=== PATIENT | female | born 1935 | race Caucasian/White ===

== ENCOUNTER 2024-02-20 12:36 | Emergency (ER) | payer MEDICARE, OTHER, MEDICAID, SELFPAY ==
[2024-02-20 12:41] VITALS: BP 122/55
[2024-02-20 13:10] VITALS: BP 137/65
[2024-02-20 13:16] LABS: % Basophils 0.7 % (0-2); % Eosinophils 3.3 % (0-6); % Immature Granulocytes 0.2 % (0-0.5); % Lymphocytes 24.4 % (20.5-51.1); % Neutrophils 61.4 % (42.2-75.2); Absolute Basophils 0.1 10^3/uL (0-0.2); Absolute Eosinophils 0.3 10^3/uL (0-0.7); Absolute Monocytes 0.8 10^3/uL (0.1-0.6); Absolute Neutrophils 5.1 10^3/uL (1.4-6.5); Hematocrit 37.7 % (37.0-47.0); Hemoglobin 13.1 g/dL (12.0-16.0); Mean Corp Hgb Conc. 34.7 g/dL (33.0-37.0); Mean Corpuscular Hgb 33.2 pg (27.0-31.0); Mean Corpuscular Volume 95.7 fL (81.0-99.0); Mean Platelet Volume 10.3 fL (7.4-10.4); Nucleated Red Blood Cells % 0 %; Platelet Count 226 10^3/uL (130-400); Red Blood Cell Count 3.94 10^6/uL (4.20-5.40); Red Cell Dist. Width 12.5 % (11.5-14.5); White Blood Cell Count 8.3 10^3/uL (4.8-10.8)
--- NOTE | 2024-02-20 13:24 | ED.GENMED ---
History of Present Illness
General
Chief Complaint: Breathing Problem
Source: patient
Exam Limitations: none
Time Seen by Provider: 02/20/24 13:07
History of Present Illness
History of Present Illness:
88-year-old female with history of CHF presents with a weeks worth of progressive worsening abdominal girth shortness of breath and dyspnea on exertion. She denies leg swelling. She has gained about 5 pounds in a week. She took an additional
Lasix yesterday which seemed to help some but she is still symptomatic. No fever. She denies orthopnea. Spoke with her family doctor today and was sent here for further evaluation
Past History
Past History
ED Past Medical History: Arrthythmia (Afib - pacemaker), Asthma, CAD, COPD, GERD, HTN, Hypercholesterolemia and Renal failure (stage III)
ED Past Surgical History: Cholecystectomy and Gynecological (hysterectomy)
Social History
Tobacco: Non-smoker
Alcohol: None
Drug: None
Phy Exam
Physical Exam
Physical Exam:
General: Well-appearing female slight increased respiratory effort
Heart: Regular rate and rhythm
Lungs: Clear no wheeze, no obvious rales
Abdomen is soft nondistended
Extremities: No cyanosis or edema
Skin is warm no rash
Scores
Heart Failure Risk
Heart Failure Risk Score: Not Applicable
Course
Orders/Labs/Results
Orders:
Orders
02/20/24 12:44
Electrocardiogram (*1) Urgent
Reason for Study: Other
Other Reason for Exam: Respiratory Distress
EKG- Treatment ONCE
CR Chest - 2 Views Urgent
Comment:
Reason For Exam: respiratory distress
02/20/24 13:02
Complete Blood Count/With Diff Urgent
Comprehensive Metabolic Panel Urgent
NT-proBNP Urgent
Troponin I Urgent
Abnormal Lab Results
02/20/24
13:02
RBC 3.94 L 10^6/uL
(4.20-5.40)
MCH 33.2 H pg
(27.0-31.0)
Absolute Monos (auto) 0.8 H 10^3/uL
(0.1-0.6)
Monocytes % 10.0 H %
(1.7-9.3)
Potassium 5.3 H mmol/L
(3.5-5.1)
BUN 19 H mg/dl
(7-17)
Creatinine 1.4 H mg/dL
(0.6-1.0)
Glucose 125 H mg/dl
(70-99)
02/20/24 13:02
02/20/24 13:02
Vital Signs
Initial and Last Documented VS:
Initial Vital Signs
Temp Pulse Resp BP Pulse Ox
99.2 F 69 18 122/55 95
02/20/24 12:41 02/20/24 12:41 02/20/24 12:41 02/20/24 12:41 02/20/24 12:41
Last Documented Vital Signs
Temp Pulse Resp BP Pulse Ox
99.2 F 72 19 137/65 94
02/20/24 12:41 02/20/24 14:00 02/20/24 13:30 02/20/24 13:10 02/20/24 14:00
MDM/Problems Addressed
Differential Diagnosis Includes:
Patient here with shortness of breath. Differential could include CHF exacerbation versus pneumonia versus anemia versus electrode abnormality. She is anticoagulated without chest pain. Unlikely be PE.
Check labs including BNP chest x-ray pending.
*Critical Care Note
Total Time (30-74mins, 75-104mins- exclusive of procedures): Not Applicable
Update Note
Update Note:
Workup here looks well. Chest x-ray clear not anemic. Patient is not hypoxic here. She has ambulated to the bathroom without being hypoxic. Suspect mild CHF exacerbation but not indicated for admission to hospital. Will have her continue her
Lasix for the next 3 days and follow-up. Return precautions were given
ED Attending Note
-
Portions of this chart may have been created with voice recognition software.� Occasional wrong word or��sound alike� substitutions may have occurred due to the inherent limitations of voice recognition software.
Discharge Plan
Departure
Patient Disposition: Home (Routine Discharge)
Date of Disposition: 02/20/24
Time of Disposition: 15:23
Patient with high blood pressure during this ER visit?: No
Discharge Problem:
Dyspnea
Instructions: Shortness of Breath (Dyspnea) (DC)
Prescriptions:
No Action
paroxetine HCl 20 MG tablet
20 mg PO QPM
esomeprazole magnesium [Nexium 24HR] 20 mg Capsule,Delayed Release(Dr/Ec)
20 mg PO DAILY
Patient Comments:
02/20/24: Patient taking this med until she can get Protonix 40mg filled.
rosuvastatin 20 mg Tablet
20 mg PO QPM
cholecalciferol (vitamin D3) 2,000 UNIT tablet
2,000 unit PO DAILY
fluticasone propion-salmeterol 250-50 mcg/dose Blister With Device
1 inh INHALATION R BID
sennosides [senna] 8.6 mg Tablet
8.6 mg PO HS
metoprolol succinate 100 mg Tablet Extended Release 24 Hr
100 mg PO BID
diltiazem HCl 240 mg Capsule,Extended Release 24 Hr
240 mg PO DAILY
hydrocortisone 2.5 % Cream With Perineal Applicator
1 applic [place] HS
ferrous sulfate 325 mg (65 mg iron) Tablet
325 mg PO DAILY
nitroglycerin 0.4 mg Tablet, Sublingual
0.4 mg SUBLINGUAL [id number] PRN (Reason: angina)
furosemide 20 mg Tablet
20 mg PO Q48H
fluticasone propionate [Flonase] 50 mcg/actuation [place],Suspension
1 spray INTRANASAL BIDPRN PRN (Reason: congestion)
Eliquis 2.5 mg Tablet
2.5 mg PO BID
Referrals:
Harvey Napoles, DO [Family Provider] -
Activity Restrictions/Additional Instructions:
Take your Lasix daily for the next 3 days. Please return here for any worsening shortness of breath or symptoms otherwise follow-up with your doctor.
Interventions
Interventions:
*Risk Screen - Suicide Last Done: 02/20/24 15:20
*Neglect/Abuse Screening Last Done: 02/20/24 15:20
*ED COVID-19 Vaccine History Last Done: 02/20/24 15:22
Discharge Date and Time
Print Language: NICARAGUAN
[2024-02-20 13:30] LABS: ALT (SGPT) 17 U/L (0-35); AST (SGOT) 23 U/L (14-36); Albumin 4.2 g/dl (3.5-5.0); Alkaline Phosphatase 78 U/L (38-126); Blood Urea Nitrogen 19 mg/dl (7-17); Calcium 9.9 mg/dl (8.4-10.2); Carbon Dioxide 29 mmol/L (22-30); Chloride 102 mmol/L (98-107); Glucose 125 mg/dl (70-99); Potassium 5.3 mmol/L (3.5-5.1); Sodium 142 mmol/L (135-145); Total Bilirubin 0.5 mg/dl (0.2-1.3); Total Protein 7.2 g/dl (6.3-8.2); eGFR 36.19
[2024-02-20 13:41] LABS: NT-proBNP 1920 pg/ml; Troponin I 0.016 ng/ml
[2024-02-20 14:00] VITALS: BP 126/51
[2024-02-20 15:12] VITALS: BMI 24.2
[2024-02-20 15:16] VITALS: BP 161/66
== END 2024-02-20 16:16 | disposition home or self-care (01) ==
LOC: EMR 12:36
PROVIDERS: Emergency Medicine; EMERGENCY PHYSICIAN Emergency Medicine; FAMILY PHYSICIAN Family Medicine
DX: R06.00 Dyspnea, unspecified (principal); I48.91 Unspecified atrial fibrillation; I25.10 Atherosclerotic heart disease of native coronary artery without angina pectoris; E78.00 Pure hypercholesterolemia, unspecified; K21.9 Gastro-esophageal reflux disease without esophagitis; I13.0 Hypertensive heart and chronic kidney disease with heart failure and stage 1 through stage 4 chronic kidney disease, or unspecified chronic kidney disease; N18.30 Chronic kidney disease, stage 3 unspecified; I50.9 Heart failure, unspecified; Z90.49 Acquired absence of other specified parts of digestive tract; Z95.0 Presence of cardiac pacemaker; Z88.2 Allergy status to sulfonamides; Z79.01 Long term (current) use of anticoagulants
CPT/HCPCS: 99283; 71046; 80053; 83880; 84484; 85025; 93005

== ENCOUNTER 2024-07-26 14:43 | Inpatient (IN) | payer OTHER, SELFPAY ==
[2024-07-26] VITALS (8 sets, daily range): BP systolic 108–128; BP diastolic 49–57; BMI 22.5
--- NOTE | 2024-07-26 10:10 | ED.GENMED ---
History of Present Illness
General
Chief Complaint: Breathing Problem
Source: patient
Exam Limitations: none
Time Seen by Provider: 07/26/24 10:00
History of Present Illness
History of Present Illness:
89yoF with history of CHF, atrial fibrillation on Eliquis, COPD, hypertension, hyperlipidemia presenting via EMS for evaluation of vomiting. She became sick yesterday evening. She reports vomiting throughout the night. She had an episode
left-sided chest pain last night and states her chest felt very sore. She has no chest pain currently. She also was very sweaty last night. She started to feel short of breath this morning and EMS was called. Patient was given droperidol by EMS
for nausea.
Past History
Past History
ED Past Medical History: Arrthythmia (Afib - pacemaker), Asthma, CAD, COPD, GERD, HTN, Hypercholesterolemia and Renal failure (stage III)
ED Past Surgical History: Cholecystectomy and Gynecological (hysterectomy)
Social History
Tobacco: Non-smoker
Alcohol: None
Drug: None
Phy Exam
General Physical Exam
General Presentation: well appearing
General Skin: warm and dry
General Habitus: elderly
General Mental: alert
ENT Exam
ENT Exam: normocephalic
Cardiovascular Exam
Cardiovascular Exam: no murmur and systolic murmur
Pulmonary Exam
Pulmonary Exam: generalized wheezing and other (Frequent cough. Diffuse wheezing. Able to speak in full sentences. )
Neurological Exam
Neurological Exam: alert
Skin Exam
Skin Exam: normal color and warm/dry
Psychiatric Exam
Psychiatric Exam: normal mood/affect
Scores
Heart Failure Risk
Heart Failure Risk Score: Not Applicable
Course
Orders/Labs/Results
Orders:
Orders
07/26/24 10:09
Electrocardiogram (*1) Urgent
Reason for Study: Shortness of Breath
EKG- Treatment ONCE
Ipratropium/Albuterol Sulfate [Duoneb] 3 ml INH R NOW STA
CR Chest - 2 Views Urgent
Comment:
Reason For Exam: SOB, cough
07/26/24 10:11
COVID-19 Antigen Urgent
Source: Nasal Swab
Complete Blood Count/With Diff Urgent
Comprehensive Metabolic Panel Urgent
Lipase Urgent
Magnesium Urgent
Troponin I Urgent
Influenza A+B Rapid Molecular Urgent
SHANNAN Source: Nasal Swab
Specimen Description:
Acetaminophen [Tylenol] 650 mg PO NOW STA
07/26/24 12:43
CefTRIAXone [Rocephin] 1,000 mg IV NOW STA
Doxycycline [Vibramycin] 100 mg PO NOW STA
07/26/24 13:48
Admit/Transfer Patient As Directed
Co-Sign Provider:
Level of Care: Inpatient admission
Assign to:: Medical/Surgical
Physician / Group: amber
Diagnosis: pnuemonia
Reason for Hospitalization: pneumonia
Expected length of stay greater than two midnights?: Yes
ELOS- Estimated Length of Stay in days: 2
I certify the patient meets the requirements for IP care: Yes
PRN Pain Medication Management As Directed
May give lesser potent ordered pain med per pt: Yes
preference::
Protocol:: Medication orders for pain may be administered in a
manner that supports deferring to patient preference
when the pt is:
- Requesting an ordered lesser potent pain medication.
Least to most potent pain medications are defined
as: acetaminophen < NSAID < tramadol < opioids
(morphine, oxycodone, hydromorphone).
- Requesting a lesser dose of the same medication IF
ORDERED.
- Requesting a less intrusive route of administration
if both routes are prescribed by the provider (PO <
IV).
07/26/24 13:49
Code Status As Directed
Resuscitation Status: Do not resuscitate
Reached after discussion with pt or family/Healthcare POA: Yes
DNR Bracelet Application ONCE
07/26/24 Dinner
Regular
At Your Request: Limited Participation
Does patient need a safe tray?: No
07/26/24 15:11
Respiratory Syncytial Virus Urgent
SHANNAN Source: Nasal Swab
Specimen Description:
Date Specimen was Collected: 07/26/24
Time Specimen was Collected: 10:13
07/26/24 15:50
0.9% Sodium Chloride 1000 ml [Nss] 1,000 ml IV 70 mls/hr
07/26/24 15:50
VTE Contraindication Routine
VTE Mechanical Device Contraindication: Medical Contraindication
Pharmocologic Contraindication: Medical Contraindication
Activity As Directed
Activity Level: As Tolerated
Vital Signs As Directed
Frequency: Per unit guidelines
07/26/24 16:00
Acetaminophen [Tylenol] 650 mg PO Q4HPRN PRN
07/26/24 20:00
Doxycycline [Vibramycin] 100 mg PO Q12
07/27/24 06:00
Complete Blood Count/With Diff IN AM
Comprehensive Metabolic Panel IN AM
07/27/24 14:00
CefTRIAXone [Rocephin] 1,000 mg IV Q24H
Abnormal Lab Results
07/26/24
10:11
WBC 11.6 H 10^3/uL
(4.8-10.8)
RBC 3.79 L 10^6/uL
(4.20-5.40)
Hct 36.5 L %
(37.0-47.0)
MCH 32.5 H pg
(27.0-31.0)
MPV 10.6 H fL
(7.4-10.4)
Absolute Neuts (auto) 9.6 H 10^3/uL
(1.4-6.5)
Absolute Lymphs (auto) 0.8 L 10^3/uL
(1.2-3.4)
Absolute Monos (auto) 0.9 H 10^3/uL
(0.1-0.6)
Neutrophils % 82.3 H %
(42.2-75.2)
Lymphocytes % 7.1 L %
(20.5-51.1)
BUN 24 H mg/dl
(7-17)
Creatinine 1.3 H mg/dL
(0.6-1.0)
Glucose 112 H mg/dl
(70-99)
Total Bilirubin 1.4 H mg/dl
(0.2-1.3)
07/26/24 10:11
07/26/24 10:11
Vital Signs
Initial and Last Documented VS:
Initial Vital Signs
Pulse Ox
92
07/26/24 09:51
Last Documented Vital Signs
Temp Pulse Resp BP Pulse Ox
97.7 F 71 16 125/54 93
07/26/24 16:00 07/26/24 16:00 07/26/24 16:00 07/26/24 16:00 07/26/24 16:00
MDM/Problems Addressed
Differential Diagnosis Includes:
89yoF here with vomiting, cough, and SOB. She is febrile to 100.7 on arrival. Oxygen saturation 88-89%. Hx of COPD, not oxygen dependent at baseline. Diffuse wheezing on lung exam without conversational dyspnea. Differential diagnosis includes but
is not limited to: viral illness, pneumonia, COPD exacerbation, ACS
Initial ED plan: Check cardiac labs, COVID/flu/RSV swab, EKG, and CXR. DuoNeb and reassess.
*EKG
Interpreted by ED Provider?: Yes
EKG Intrepretation Date: 07/26/24
Heart Rate: 72
Rate: normal
Rhythm: av sequential
Bryan: left axis deviation
QRS Pattern: right bundle branch block (incomplete)
Ischemia: no ischemia
*Critical Care Note
Total Time (30-74mins, 75-104mins- exclusive of procedures): Not Applicable
Update Note
Update Note:
CXR shows subtle RLL infiltrate. WBC 11.6. Viral testing negative. EKG shows paced rhythm without ischemic changes. IV Rocephin and doxycycline ordered. Patient admitted for further management. Patient on 2L NC at time of admission.
ED Attending Note
-
Portions of this chart may have been created with voice recognition software.� Occasional wrong word or��sound alike� substitutions may have occurred due to the inherent limitations of voice recognition software.
Discharge Plan
Departure
Patient Disposition: Admit
Date of Disposition: 07/26/24
Time of Disposition: 12:51
Presentation/result/management discussed w/ accepting MD/DO: Hospitalist
Discharge Problem:
Pneumonia, Acute hypoxic respiratory failure
Interventions
Interventions:
*Risk Screen - Suicide Last Done: 07/26/24 10:09
*General Assessment Last Done: 07/26/24 10:09
*Neglect/Abuse Screening Last Done: 07/26/24 10:09
*ED- Fall Risk Assessment Last Done: 07/26/24 10:34
*ED COVID-19 Vaccine History Last Done: 07/26/24 10:34
*Nursing Disposition Last Done: 07/26/24 16:04
ED- Cardiac Assessment Last Done: 07/26/24 10:33
ED- Pulmonary Assessment Last Done: 07/26/24 10:33
Discharge Date and Time
Discharge Date/Time: 07/26/24 16:04
[2024-07-26] MEDS: DUONEB 3 ML INH (10:19)
[2024-07-26] MEDS: TYLENOL 650 MG PO (10:19)
[2024-07-26 10:22] LABS: % Basophils 0.3 % (0-2); % Eosinophils 1.9 % (0-6); % Immature Granulocytes 0.3 % (0-0.5); % Lymphocytes 7.1 % (20.5-51.1); % Monocytes 8.1 % (1.7-9.3); % Neutrophils 82.3 % (42.2-75.2); Absolute Eosinophils 0.2 10^3/uL (0-0.7); Absolute Lymphocytes 0.8 10^3/uL (1.2-3.4); Absolute Monocytes 0.9 10^3/uL (0.1-0.6); Absolute Neutrophils 9.6 10^3/uL (1.4-6.5); Hematocrit 36.5 % (37.0-47.0); Hemoglobin 12.3 g/dL (12.0-16.0); Mean Corp Hgb Conc. 33.7 g/dL (33.0-37.0); Mean Corpuscular Hgb 32.5 pg (27.0-31.0); Mean Corpuscular Volume 96.3 fL (81.0-99.0); Mean Platelet Volume 10.6 fL (7.4-10.4); Nucleated Red Blood Cells % 0 %; Platelet Count 214 10^3/uL (130-400); Red Blood Cell Count 3.79 10^6/uL (4.20-5.40); Red Cell Dist. Width 12.2 % (11.5-14.5); White Blood Cell Count 11.6 10^3/uL (4.8-10.8)
[2024-07-26 10:38] LABS: ALT (SGPT) 15 U/L (0-35); AST (SGOT) 20 U/L (14-36); Albumin 3.5 g/dl (3.5-5.0); Alkaline Phosphatase 88 U/L (38-126); Blood Urea Nitrogen 24 mg/dl (7-17); Calcium 9.5 mg/dl (8.4-10.2); Carbon Dioxide 27 mmol/L (22-30); Chloride 100 mmol/L (98-107); Glucose 112 mg/dl (70-99); Lipase 84 U/L (23-300); Magnesium 2.2 mg/dl (1.6-2.3); Potassium 4.6 mmol/L (3.5-5.1); Sodium 136 mmol/L (135-145); Total Bilirubin 1.4 mg/dl (0.2-1.3); Total Protein 6.4 g/dl (6.3-8.2); eGFR 39.31
[2024-07-26 10:41] LABS: COVID-19 Antigen Negative (Negative)
[2024-07-26 10:42] LABS: Troponin I < 0.012 ng/ml
[2024-07-26] MEDS: VIBRAMYCIN 100 MG PO ×2 (13:39→20:28)
[2024-07-26] MEDS: ROCEPHIN 1000 MG IV (13:39)
--- NOTE | 2024-07-26 13:52 | HPS.HSE ---
Family Physician
-
Family Physician: Harvey Napoles
Chief Complaint
-
vomiting, cough
History of Present Illness
89-year-old female past medical history of CHF, atrial fibrillation on Eliquis with pacemaker, CAD, COPD, hypertension, hyperlipidemia, GERD, CKD 3, presenting for cough and vomiting. She became sick yesterday evening and had vomiting throughout
the night. She had an episode of left-sided chest pain last night and states that her chest felt very sore. She has no chest pain currently. She was also very sweaty last night. She started to feel short of breath with cough this morning and EMS
was called. She was given droperidol by EMS for nausea.
Denies any diarrhea. She does have some abdominal discomfort.
Denies smoking or alcohol use.
Medical History
Past Medical History
Past Medical History: Reports Other (CHF, atrial fibrillation on Eliquis with pacemaker, CAD, COPD, hypertension, hyperlipidemia, GERD, CKD 3,)
Past Surgical History: Reports Other ( Cholecystectomy and Gynecological (hysterectomy))
Social History
Tobacco: Non-smoker
Alcohol: None
Drug: None
Family History
Family History: Not pertinent
Allergies / Home Medications
Allergies reflects when Allergies were last updated in [facility].
Home Medications with original date entered in [facility]
Allergy/Medication List:
Allergies
Allergy/AdvReac Type Severity Reaction Status Date / Time
Sulfa (Sulfonamide Allergy Unknown Unknown Verified 07/26/24 10:06
Antibiotics)
Home Medications
cholecalciferol (vitamin D3) 50 mcg (2,000 unit) tablet 2,000 unit PO DAILY 12/18/20
esomeprazole magnesium 20 mg capsule,delayed release (Nexium 24HR) 20 mg PO DAILY 12/18/20
paroxetine HCl 20 mg tablet 20 mg PO QPM 12/18/20
rosuvastatin 20 mg tablet 20 mg PO QPM 12/18/20
apixaban 2.5 mg tablet (Eliquis) 2.5 mg PO BID 02/20/24
diltiazem HCl 240 mg capsule,24 hr,extended release 240 mg PO DAILY 02/20/24
ferrous sulfate 325 mg (65 mg iron) tablet 325 mg PO DAILY 02/20/24
fluticasone 250 mcg-salmeterol 50 mcg/dose blistr powdr for inhalation 1 inh inhalation R BID 02/20/24
fluticasone propionate 50 mcg/actuation nasal spray,suspension 1 spray intranasal BIDPRN PRN congestion 02/20/24
furosemide 20 mg tablet 20 mg PO Q48H 02/20/24
hydrocortisone 2.5 % topical cream with perineal applicator 1 applic [place] HS hemorrhoids 02/20/24
metoprolol succinate 100 mg tablet,extended release 24 hr 100 mg PO BID 02/20/24
nitroglycerin 0.4 mg sublingual tablet 0.4 mg sublingual [id number] PRN angina 02/20/24
sennosides 8.6 mg tablet (senna) 8.6 mg PO HS 02/20/24
Review of Systems
-
History Source: Patient
A 12 point ROS was completed and negative except as noted: Yes
Constitutional: Reports No Symptoms
EENT: Reports No Symptoms
Respiratory: Reports See HPI
Cardiac: Reports No Symptoms
Abdomen/GI: Reports See HPI
: Reports No Symptoms
Musculoskeletal: Reports No Symptoms
Skin: Reports No Symptoms
Neurological: Reports No Symptoms
Endocrine: Reports No Symptoms
Hematologic/Lymphatic: Reports No Symptoms
Psych: Reports No Symptoms
Physical Exam
Vital Signs
Vital Signs
Temp Pulse Resp BP Pulse Ox
100.7 F H 71 26 118/52 93
07/26/24 09:52 07/26/24 10:45 07/26/24 11:55 07/26/24 10:00 07/26/24 10:45
Physical Exam
General: Well Developed, Well Nourished and No Apparent Distress
HEENT: NormoCephalic, Moist mucous membranes and Atraumatic
Respiratory: Clear
Cardiac: S1/S2 and Regular Rhythm; No Murmur or Rub
GI: Soft, Non Tender, Non Distended and Normal Bowel Sounds; No Organomegaly
Rectal: Deferred by Provider
Musculoskeletal: No Clubbing, No Cyanosis and No Edema
Skin: No Rash
Neuro: Nonfocal/grossly intact
Laboratory Results
-
07/26/24 10:11
07/26/24 10:11
Laboratory Results
Total Bilirubin 1.4 mg/dl (0.2-1.3) H 07/26/24 10:11
AST 20 U/L (14-36) 07/26/24 10:11
ALT 15 U/L (0-35) 07/26/24 10:11
Alkaline Phosphatase 88 U/L (38-126) 07/26/24 10:11
Troponin I < 0.012 ng/ml 07/26/24 10:11
Lipase 84 U/L (23-300) 07/26/24 10:11
Data Reviewed
-
Lab Data: Labs Reviewed by me
Old Records: Reviewed
Impression/Plan
-
IMPRESSION:
PLAN:
# Sepsis (fever, tachypnea, leukocytosis) secondary to community acquired pneumonia
-Chest x-ray shows subtle right lower lobe infiltrate and trace effusion
- COVID and flu negative
-RSV pending
-Gentle IV fluids
- Ceftriaxone/doxycycline
# Vomiting likely secondary to viral gastroenteritis/fever from pneumonia
- Has some mild abdominal tenderness
- Vomiting improved
- No diarrhea
- regular diet
History of heart failure
- Hold Lasix
Paroxysmal atrial fibrillation with pacemaker
- Continue Eliquis
- Continue Cardizem
- Continue metoprolol
CAD
COPD
- Continue inhalers
Essential hypertension
Hyperlipidemia
- Continue statin
GERD
- Continue esomeprazole
CKD 3
- Renal function at baseline
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
Anxiety/depression
- Continue paroxetine
DNR/DNI
DVT prophylaxis�heparin
Cardiac diet
[2024-07-26] MEDS: NSS 1000 IV (17:40)
[2024-07-26] MEDS: PAXIL 20 MG PO (17:43)
[2024-07-26] MEDS: CRESTOR 20 MG PO (17:44)
[2024-07-26] MEDS: TOPROL XL 100 MG PO (20:28)
[2024-07-26] MEDS: ELIQUIS 2.5 MG PO (20:28)
[2024-07-26] MEDS: SENOKOT PO (21:06)
[2024-07-27] MEDS: ADVAIR HFA 115/21 MCG INHALER INH (01:10)
[2024-07-27 05:36] VITALS: BMI 22.5
[2024-07-27 06:39] LABS: % Basophils 0.2 % (0-2); % Eosinophils 2.7 % (0-6); % Immature Granulocytes 0.3 % (0-0.5); % Lymphocytes 10.6 % (20.5-51.1); % Monocytes 10.7 % (1.7-9.3); % Neutrophils 75.5 % (42.2-75.2); Absolute Eosinophils 0.3 10^3/uL (0-0.7); Absolute Lymphocytes 1.3 10^3/uL (1.2-3.4); Absolute Monocytes 1.3 10^3/uL (0.1-0.6); Absolute Neutrophils 9.3 10^3/uL (1.4-6.5); Hematocrit 34.6 % (37.0-47.0); Hemoglobin 11.6 g/dL (12.0-16.0); Mean Corp Hgb Conc. 33.5 g/dL (33.0-37.0); Mean Corpuscular Hgb 32.3 pg (27.0-31.0); Mean Corpuscular Volume 96.4 fL (81.0-99.0); Mean Platelet Volume 11.4 fL (7.4-10.4); Nucleated Red Blood Cells % 0 %; Platelet Count 227 10^3/uL (130-400); Red Blood Cell Count 3.59 10^6/uL (4.20-5.40); Red Cell Dist. Width 12.2 % (11.5-14.5); White Blood Cell Count 12.3 10^3/uL (4.8-10.8)
[2024-07-27 07:05] LABS: ALT (SGPT) 14 U/L (0-35); AST (SGOT) 19 U/L (14-36); Albumin 3.5 g/dl (3.5-5.0); Alkaline Phosphatase 83 U/L (38-126); Blood Urea Nitrogen 31 mg/dl (7-17); Calcium 8.8 mg/dl (8.4-10.2); Carbon Dioxide 23 mmol/L (22-30); Chloride 101 mmol/L (98-107); Estimated Creatinine Clearance 23 ml/min; Glucose 95 mg/dl (70-99); Potassium 4.2 mmol/L (3.5-5.1); Sodium 137 mmol/L (135-145); Total Bilirubin 0.7 mg/dl (0.2-1.3); Total Protein 6.2 g/dl (6.3-8.2); eGFR 39.31
[2024-07-27 07:55] VITALS: BP 130/50
--- NOTE | 2024-07-27 08:08 | W.PN.HOSP.TC ---
Today's Communication/Plan
-
Continue antibiotics
Continue to wean off oxyegn
Assessment / Plan
Assessment / Plan
Impression:
89-year-old female past medical history of CHF, atrial fibrillation on Eliquis with pacemaker, CAD, COPD, hypertension, hyperlipidemia, GERD, CKD 3, presenting for cough and vomiting. � She had an episode of left-sided chest pain, chest x-ray shows
subtle right lower lobe infiltrate and trace effusion, started on Rocephin and Doxy.
Assessment/plan:
Severe sepsis with acute organ dysfunction secondary to community acquired pneumonia
-Chest x-ray shows subtle right lower lobe infiltrate and trace effusion
Patient meets sepsis criteria on admission with leukocytosis, tachypnea, fever
Patient currently on 3 L nasal cannula
- COVID and flu negative
-RSV negative
-Gentle IV fluids
- Ceftriaxone/doxycycline
Acute hypoxic respiratory failure secondary to pneumonia
Patient dropped oxygen level to 89% in the ER
Placed on 2 L nasal cannula, currently on 3 L nasal cannula.
Oxygen sat 94%.
Continue to wean oxygen
Vomiting likely secondary to viral gastroenteritis
- Has some mild abdominal tenderness
- Vomiting improved
- No diarrhea
- regular diet
History of heart failure
Unknown type, no recent echo in the chart
-No acute exacerbation.
Holding Lasix since the patient was having vomiting, will resume on discharge.
Paroxysmal atrial fibrillation with pacemaker -currently sinus rhythm
- Continue Eliquis
- Continue Cardizem
- Continue metoprolol
CAD
Exoskeletal chest pain but otherwise no evidence of acute coronary syndrome
Continue metoprolol
COPD
- Continue inhalers
History of hypertension
Continue home meds
Hyperlipidemia
- Continue statin
GERD
- Continue esomeprazole
CKD 3
- Renal function at baseline
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
Anxiety/depression
- Continue paroxetine
CODE STATUS:DNR/DNI
DVT prophylaxis: Eliquis
Diet: Regular diet
Disposition: Continue antibiotics
Total time spent on today's encounter was 65 minutes which included time spent in counseling the patient/family regarding diagnosis and treatment plan as listed above, goals of care, and symptom management. Case was discussed with nursing staff,
specialists, and care coordinators/case management. All labs and imaging personally reviewed by me. Remainder the time spent in detailed review of previous records, lab data, imaging, and other medical provider documentation.
Anticipated Discharge: 24 - 48 hours
Subjective/Interval History
-
Date of Service: July 27, 2024
Patient seen and examined at bedside, denies any chest pain , still coughing but stated that shortness of breath Improved, no abdominal pain, no nausea, no vomiting, no diarrhea or constipation.
Still on oxygen.
Objective Data
-
Labs:
Laboratory Results
07/27/24
05:03
WBC 12.3 H
Hgb 11.6 L
Hct 34.6 L
Plt Count 227
Sodium 137
Potassium 4.2
Chloride 101
Carbon Dioxide 23
BUN 31 H
Creatinine 1.3 H
Glucose 95
Calcium 8.8
Total Bilirubin 0.7
AST 19
ALT 14
Alkaline Phosphatase 83
Vital Signs:
Vital Signs
Temp Pulse Resp BP Pulse Ox
98.4 F 73 20 108/51 95
07/26/24 23:04 07/26/24 23:04 07/26/24 23:04 07/26/24 23:04 07/26/24 23:04
I&O
07/26/24 07/27/24 07/28/24
06:59 06:59 06:59
Intake Total 240 / 240
Balance 240 / 240
Physical Exam
-
General: Well Developed, Well Nourished, No Apparent Distress and Comfortable
HEENT: Normocephalic, Atraumatic, Moist Mucous Membranes, No Ptosis, PERRLA, Nose Appears Normal and Deaf (Right ear )
Respiratory: Rales, Rhonchi, Crackles and Non Labored Respirations
Cardiac: Regular Rhythm and S1/S2
Breast: Deferred by me
GI: Soft, Nontender, Nondistended and Normal Bowel Sounds
Genito-urinary: No Costovertebral Tender
Musculoskeletal: No Clubbing, No Cyanosis and No Edema
Skin: Warm
Neuro: Awake, Alert, Oriented, AO x 3 and No Motor Deficits
Psych: Calm
Data Reviewed
-
Diagnostic Radiology: Image personally visualized and interpreted and Report Reviewed by me
CT Scan: Image personally visualized and interpreted and Report Reviewed by me
Ultrasound: Image personally visualized and interpreted and Report Reviewed by me
MRI: Image personally visualized and interpreted and Report Reviewed by me
Medical Tests (Nuc Med, Echo etc): Image personally visualized and interpreted and Report Reviewed by me
Labs: Labs Reviewed by me
Old Records: Reviewed
[2024-07-27] MEDS: TOPROL XL 100 MG PO ×2 (08:19→19:41)
[2024-07-27] MEDS: CARDIZEM CD 240 MG PO (08:20)
[2024-07-27] MEDS: VIBRAMYCIN 100 MG PO ×2 (08:20→19:41)
[2024-07-27] MEDS: VITAMIN D3 (cholecalciferol) 50 MCG PO (08:20)
[2024-07-27] MEDS: ELIQUIS 2.5 MG PO ×2 (08:20→19:41)
[2024-07-27] MEDS: FEOSOL 325 MG PO (08:20)
[2024-07-27] MEDS: PROTONIX 40 MG PO (08:20)
[2024-07-27] MEDS: ADVAIR HFA 115/21 MCG INHALER 2 PUFF INH ×2 (09:06→20:16)
[2024-07-27] MEDS: NSS 1000 IV (12:16)
[2024-07-27] MEDS: STERILE WATER FOR INJECTION 10 ML IV (14:57)
[2024-07-27] MEDS: ROCEPHIN 1000 MG IV (14:57)
[2024-07-27 15:00] VITALS: BP 126/53
[2024-07-27 16:12] VITALS: O2SAT 95
[2024-07-27] MEDS: PAXIL 20 MG PO (17:04)
[2024-07-27] MEDS: CRESTOR 20 MG PO (17:04)
[2024-07-27] MEDS: MELATONIN 5 MG PO (19:45)
[2024-07-27] MEDS: SENOKOT PO (21:19)
[2024-07-27 23:15] VITALS: BP 103/50
[2024-07-28] MEDS: NSS 1000 IV (01:40)
[2024-07-28 05:38] VITALS: BMI 22.4
[2024-07-28 08:00] LABS: Hematocrit 30.1 % (37.0-47.0); Hemoglobin 10.1 g/dL (12.0-16.0); Mean Corp Hgb Conc. 33.6 g/dL (33.0-37.0); Mean Corpuscular Hgb 32.6 pg (27.0-31.0); Mean Corpuscular Volume 97.1 fL (81.0-99.0); Mean Platelet Volume 11.6 fL (7.4-10.4); Platelet Count 205 10^3/uL (130-400); Red Cell Dist. Width 12.5 % (11.5-14.5); White Blood Cell Count 10.4 10^3/uL (4.8-10.8)
[2024-07-28 08:01] LABS: Blood Urea Nitrogen 27 mg/dl (7-17); Calcium 8.8 mg/dl (8.4-10.2); Carbon Dioxide 25 mmol/L (22-30); Chloride 108 mmol/L (98-107); Estimated Creatinine Clearance 27 ml/min; Glucose 106 mg/dl (70-99); Potassium 4.5 mmol/L (3.5-5.1); Sodium 139 mmol/L (135-145); eGFR 48.03
[2024-07-28] MEDS: ADVAIR HFA 115/21 MCG INHALER 2 PUFF INH ×2 (08:07→19:51)
[2024-07-28 08:12] VITALS: BP 117/48
[2024-07-28] MEDS: ELIQUIS 2.5 MG PO ×2 (08:35→19:51)
[2024-07-28] MEDS: TOPROL XL 100 MG PO ×2 (08:35→19:51)
[2024-07-28] MEDS: VITAMIN D3 (cholecalciferol) 50 MCG PO (08:35)
[2024-07-28] MEDS: PROTONIX 40 MG PO (08:35)
[2024-07-28] MEDS: VIBRAMYCIN 100 MG PO ×2 (08:35→19:51)
[2024-07-28] MEDS: FEOSOL 325 MG PO (08:36)
[2024-07-28] MEDS: CARDIZEM CD 240 MG PO (08:36)
[2024-07-28] MEDS: TYLENOL 650 MG PO ×3 (08:41→20:03)
--- NOTE | 2024-07-28 12:30 | W.PN.HOSP.TC ---
Today's Communication/Plan
-
Monitor vital signs see plan
Continue with antibiotics
Wean oxygen as tolerated, currently on 2 L
Monitor volume status
Assessment / Plan
Assessment / Plan
Impression:
89-year-old female past medical history of CHF, atrial fibrillation on Eliquis with pacemaker, CAD, COPD, hypertension, hyperlipidemia, GERD, CKD 3, presenting for cough and vomiting. � She had an episode of left-sided chest pain, chest x-ray shows
subtle right lower lobe infiltrate and trace effusion, started on Rocephin and Doxy.
Assessment/plan:
Severe sepsis with acute organ dysfunction secondary to community acquired pneumonia
-Chest x-ray shows subtle right lower lobe infiltrate and trace effusion
Patient meets sepsis criteria on admission with leukocytosis, tachypnea, fever
Currently on 2 L, wean oxygen as tolerated
- COVID and flu negative
-RSV negative
- Ceftriaxone/doxycycline
Acute hypoxic respiratory insufficiency secondary to pneumonia
Patient dropped oxygen level to 89% in the ER
Currently on 2 L, wean oxygen as tolerated
Vomiting likely secondary to viral gastroenteritis
- Has some mild abdominal tenderness
- Vomiting improved
- No diarrhea
- regular diet
History of heart failure
Unknown type, no recent echo in the chart
-No acute exacerbation.
Holding Lasix since the patient was having vomiting, will resume on discharge.
Paroxysmal atrial fibrillation with pacemaker -currently sinus rhythm
- Continue Eliquis
- Continue Cardizem
- Continue metoprolol
CAD
Exoskeletal chest pain but otherwise no evidence of acute coronary syndrome
Continue metoprolol
COPD
- Continue inhalers
History of hypertension
Continue home meds
Hyperlipidemia
- Continue statin
GERD
- Continue esomeprazole
CKD 3
- Renal function at baseline
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
Anxiety/depression
- Continue paroxetine
CODE STATUS:DNR/DNI
DVT prophylaxis: Eliquis
General: Well Developed, Well Nourished, No Apparent Distress and Comfortable
HEENT: Normocephalic, Atraumatic, Moist Mucous Membranes, hearing deficit
Respiratory: Rales, Rhonchi, Crackles and Non Labored Respirations
Cardiac: Regular Rhythm and S1/S2
GI: Soft, Nontender, Nondistended and Normal Bowel Sounds
Musculoskeletal: No Edema
Neuro: Awake, Alert, Oriented, AO x 3 and No Motor Deficits
Psych: Calm
Anticipated Discharge: Within 24 hours
Subjective/Interval History
-
Date of Service: July 28, 2024
Denies pain
Objective Data
-
Labs:
Laboratory Results
07/28/24
06:14
WBC 10.4
Hgb 10.1 L
Hct 30.1 L
Plt Count 205
Sodium 139
Potassium 4.5
Chloride 108 H
Carbon Dioxide 25
BUN 27 H
Creatinine 1.1 H
Glucose 106 H
Calcium 8.8
Vital Signs:
Vital Signs
Temp Pulse Resp BP Pulse Ox
99.3 F 73 18 117/48 93
07/28/24 08:12 07/28/24 08:35 07/28/24 08:12 07/28/24 08:35 07/28/24 08:12
I&O
07/27/24 07/28/24 07/29/24
06:59 06:59 06:59
Intake Total 240 / 240 960 / 960
Balance 240 / 240 960 / 960
[2024-07-28 12:41] VITALS: BP 126/49; PULSE 71; O2SAT 95
[2024-07-28] MEDS: STERILE WATER FOR INJECTION 10 ML IV (14:16)
[2024-07-28] MEDS: ROCEPHIN 1000 MG IV (14:17)
[2024-07-28 16:19] VITALS: BP 119/53
[2024-07-28] MEDS: PAXIL 20 MG PO (17:47)
[2024-07-28] MEDS: CRESTOR 20 MG PO (17:47)
[2024-07-28] MEDS: MELATONIN 5 MG PO (19:51)
[2024-07-28] MEDS: SENOKOT PO (21:08)
[2024-07-28 23:22] VITALS: BP 117/66
[2024-07-29 06:00] VITALS: BMI 22.4
[2024-07-29 06:45] LABS: % Basophils 0.2 % (0-2); % Eosinophils 1.6 % (0-6); % Immature Granulocytes 0.6 % (0-0.5); % Lymphocytes 11.4 % (20.5-51.1); % Monocytes 10.2 % (1.7-9.3); Absolute Eosinophils 0.2 10^3/uL (0-0.7); Absolute Immature Granulocytes 0.1 10^3/uL (0-0.05); Absolute Lymphocytes 1.2 10^3/uL (1.2-3.4); Absolute Monocytes 1.1 10^3/uL (0.1-0.6); Absolute Neutrophils 7.9 10^3/uL (1.4-6.5); Hematocrit 29.7 % (37.0-47.0); Mean Corp Hgb Conc. 33.7 g/dL (33.0-37.0); Mean Corpuscular Hgb 32.9 pg (27.0-31.0); Mean Corpuscular Volume 97.7 fL (81.0-99.0); Mean Platelet Volume 10.6 fL (7.4-10.4); Nucleated Red Blood Cells % 0 %; Platelet Count 215 10^3/uL (130-400); Red Blood Cell Count 3.04 10^6/uL (4.20-5.40); Red Cell Dist. Width 12.5 % (11.5-14.5); White Blood Cell Count 10.4 10^3/uL (4.8-10.8)
[2024-07-29 07:13] LABS: Blood Urea Nitrogen 21 mg/dl (7-17); Calcium 8.9 mg/dl (8.4-10.2); Carbon Dioxide 26 mmol/L (22-30); Chloride 107 mmol/L (98-107); Estimated Creatinine Clearance 30 ml/min; Glucose 118 mg/dl (70-99); Potassium 4.2 mmol/L (3.5-5.1); Sodium 141 mmol/L (135-145); eGFR 53.85
[2024-07-29] MEDS: ADVAIR HFA 115/21 MCG INHALER 2 PUFF INH ×2 (07:59→19:31)
[2024-07-29 08:05] VITALS: BP 116/45
[2024-07-29] MEDS: PROTONIX 40 MG PO (08:38)
[2024-07-29] MEDS: FEOSOL 325 MG PO (08:38)
[2024-07-29] MEDS: CARDIZEM CD 240 MG PO (08:38)
[2024-07-29] MEDS: VIBRAMYCIN 100 MG PO ×2 (08:38→19:58)
[2024-07-29] MEDS: ELIQUIS 2.5 MG PO ×2 (08:43→19:58)
[2024-07-29] MEDS: TOPROL XL 100 MG PO ×2 (08:43→19:58)
[2024-07-29] MEDS: VITAMIN D3 (cholecalciferol) 50 MCG PO (08:43)
[2024-07-29 12:49] VITALS: O2SAT 91
--- NOTE | 2024-07-29 12:51 | W.PN.HOSP.TC ---
Addendum entered and electronically signed by Suleiman Patel MD 07/30/24 12:44:
community acquired pneumonia; no signs of aspiration pneumonia
Original Note:
Today's Communication/Plan
-
Monitor vitals
See plan
Still hypoxic, repeat chest x-ray tomorrow
Continue with antibiotic
Check blood culture, fever this morning
Assessment / Plan
Assessment / Plan
Impression:
89-year-old female past medical history of CHF, atrial fibrillation on Eliquis with pacemaker, CAD, COPD, hypertension, hyperlipidemia, GERD, CKD 3, presenting for cough and vomiting. � She had an episode of left-sided chest pain, chest x-ray shows
subtle right lower lobe infiltrate and trace effusion, started on Rocephin and Doxy.
Assessment/plan:
Severe sepsis with acute organ dysfunction secondary to community acquired pneumonia
-Chest x-ray shows subtle right lower lobe infiltrate and trace effusion
Patient meets sepsis criteria on admission with leukocytosis, tachypnea, fever
Currently on 2 L, wean oxygen as tolerated. repeat CXR in am
Temp 100.4 5/6, blood culture pending
- COVID and flu negative
-RSV negative
- Ceftriaxone/doxycycline
Acute hypoxic respiratory insufficiency secondary to pneumonia
Patient dropped oxygen level to 89% in the ER
Currently on 2 L, wean oxygen as tolerated
Vomiting likely secondary to viral gastroenteritis
- Has some mild abdominal tenderness
- Vomiting improved
- No diarrhea
- regular diet
History of heart failure
Unknown type, no recent echo in the chart
-No acute exacerbation.
Holding Lasix since the patient was having vomiting, will resume on discharge. Monitor volume status closely
Paroxysmal atrial fibrillation with pacemaker -currently sinus rhythm
- Continue Eliquis
- Continue Cardizem
- Continue metoprolol
CAD
Exoskeletal chest pain but otherwise no evidence of acute coronary syndrome
Continue metoprolol
COPD
- Continue inhalers
History of hypertension
Continue home meds
Hyperlipidemia
- Continue statin
GERD
- Continue esomeprazole
CKD 3
- Renal function at baseline
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
Anxiety/depression
- Continue paroxetine
CODE STATUS:DNR/DNI
DVT prophylaxis: Eliquis
General: Well Developed, Well Nourished, No Apparent Distress and Comfortable
HEENT: Normocephalic, Atraumatic, Moist Mucous Membranes, hearing deficit
Respiratory: Rales, Rhonchi, Crackles and Non Labored Respirations
Cardiac: Regular Rhythm and S1/S2
GI: Soft, Nontender, Nondistended and Normal Bowel Sounds
Musculoskeletal: No Edema
Neuro: Awake, Alert, Oriented, AO x 3 and No Motor Deficits
Psych: Calm
I spent a total of 52 minutes with the patient or on the floor. More than 50% of this time involved counseling and coordination of care.
Anticipated Discharge: 24 - 48 hours
Subjective/Interval History
-
Date of Service: July 29, 2024
Fever this morning
Objective Data
-
Labs:
Laboratory Results
07/29/24
06:29
WBC 10.4
Hgb 10.0 L
Hct 29.7 L
Plt Count 215
Sodium 141
Potassium 4.2
Chloride 107
Carbon Dioxide 26
BUN 21 H
Creatinine 1.0
Glucose 118 H
Calcium 8.9
Vital Signs:
Vital Signs
Temp Pulse Resp BP Pulse Ox
99.6 F 74 20 116/45 94
07/29/24 10:06 07/29/24 08:38 07/29/24 08:05 07/29/24 08:38 07/29/24 08:05
I&O
07/28/24 07/29/24 07/30/24
06:59 06:59 06:59
Intake Total 960 / 960 1320 / 1320
Balance 960 / 960 1320 / 1320
--- NOTE | 2024-07-29 14:56 | PN.CDI ---
CDI
- -
CDI:
Physician Documentation Request
Admit Date: 07/26/24 14:43
Dear Doctor Jorge,
Patient admitted with sepsis.
07/29 PN, 'Severe sepsis with acute organ dysfunction secondary to community acquired pneumonia....Ceftriaxone/Doxycycline'
EMS Report, ' The patient reports to EMS that she has been experiencing nausea/ vomiting over the last day or so....this morning the patient presents with coughing and shortness of breath, with audible crackles....she notes coughing on her emesis
last night.'
07/26 Chest x-ray, 'Findings suspicious for subtle right lower lobe infiltrate and trace effusion.'
Based on the above, please provide in your note the suspected or likely type of pneumonia you are treating:
Aspiration Pneumonia
Pneumonia, unspecified
Other
Use of terms such as suspected, likely, concern for, or probable (associated with a specific diagnosis that is being evaluated, monitored, or treated as if it exists) are acceptable and can be coded in the inpatient setting, when documented at the
time of discharge.
Thank you,
Zeina MAYN,RN,CCDS
CDI Specialist
Available via [place] text
Please use your independent medical judgment in providing your response.
[2024-07-29] MEDS: ROCEPHIN 1000 MG IV (15:05)
[2024-07-29] MEDS: STERILE WATER FOR INJECTION 10 ML IV (15:05)
[2024-07-29 15:45] VITALS: BP 118/53
[2024-07-29] MEDS: PAXIL 20 MG PO (16:48)
[2024-07-29] MEDS: CRESTOR 20 MG PO (16:48)
[2024-07-29] MEDS: TYLENOL 650 MG PO (19:57)
[2024-07-29] MEDS: SENOKOT 8.6 MG PO (19:59)
[2024-07-29] MEDS: MELATONIN 5 MG PO (20:08)
[2024-07-29 23:35] VITALS: BP 103/48
[2024-07-30 05:32] VITALS: BMI 23.8
[2024-07-30 06:36] LABS: % Basophils 0.3 % (0-2); % Eosinophils 1.9 % (0-6); % Immature Granulocytes 0.7 % (0-0.5); % Lymphocytes 12.1 % (20.5-51.1); % Monocytes 10.8 % (1.7-9.3); % Neutrophils 74.2 % (42.2-75.2); Absolute Eosinophils 0.2 10^3/uL (0-0.7); Absolute Immature Granulocytes 0.1 10^3/uL (0-0.05); Absolute Lymphocytes 1.4 10^3/uL (1.2-3.4); Absolute Monocytes 1.2 10^3/uL (0.1-0.6); Absolute Neutrophils 8.4 10^3/uL (1.4-6.5); Hematocrit 29.2 % (37.0-47.0); Hemoglobin 9.7 g/dL (12.0-16.0); Mean Corp Hgb Conc. 33.2 g/dL (33.0-37.0); Mean Corpuscular Hgb 32.6 pg (27.0-31.0); Mean Platelet Volume 10.6 fL (7.4-10.4); Nucleated Red Blood Cells % 0 %; Platelet Count 231 10^3/uL (130-400); Red Blood Cell Count 2.98 10^6/uL (4.20-5.40); Red Cell Dist. Width 12.5 % (11.5-14.5); White Blood Cell Count 11.3 10^3/uL (4.8-10.8)
[2024-07-30 07:09] LABS: Blood Urea Nitrogen 22 mg/dl (7-17); Calcium 8.8 mg/dl (8.4-10.2); Carbon Dioxide 24 mmol/L (22-30); Chloride 106 mmol/L (98-107); Estimated Creatinine Clearance 30 ml/min; Glucose 101 mg/dl (70-99); Potassium 4.4 mmol/L (3.5-5.1); Sodium 139 mmol/L (135-145); eGFR 53.85
[2024-07-30] MEDS: ADVAIR HFA 115/21 MCG INHALER 2 PUFF INH ×2 (07:32→19:20)
[2024-07-30 07:45] VITALS: BP 116/53
[2024-07-30] MEDS: PROTONIX 40 MG PO (07:54)
[2024-07-30] MEDS: FEOSOL 325 MG PO (07:54)
[2024-07-30] MEDS: CARDIZEM CD 240 MG PO (07:54)
[2024-07-30] MEDS: VITAMIN D3 (cholecalciferol) 50 MCG PO (07:54)
[2024-07-30] MEDS: ELIQUIS 2.5 MG PO ×2 (07:54→19:28)
[2024-07-30] MEDS: TOPROL XL 100 MG PO ×2 (07:54→19:28)
[2024-07-30] MEDS: VIBRAMYCIN 100 MG PO ×2 (07:54→19:28)
--- NOTE | 2024-07-30 09:44 | PTOTSP ---
Speech Therapy Evaluation:
Pt presents with signs concerning for oropharyngeal dysphagia, likely chronic related to hx of GERD and COPD, compounded by acute medical illness in the setting of sepsis 2/2 PNA. Oral phase was slow but functional. No overt s/sx of aspiration
across trials, however unable to rule out silent aspiration given limitations at bedside, pt specific risk factors, and reported hx of PNAs of unknown etiology. WBC elevated at 11.3 and pt requiring supplemental O2, however no hx of swallow
dysfunction or ST services per pt report.
Recommend:
1. Continue IDDSI Level 7 (regular) and thin liquids
2. Medications whole in puree per pt preference
3. General aspiration and reflux precautions
4. 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
[2024-07-30 10:56] VITALS: BP 92/60
--- NOTE | 2024-07-30 12:34 | W.PN.HOSP.TC ---
Today's Communication/Plan
-
monitor vitals
see plan
resume lasix
wean o2
cw abx
discussed with daughter over the phone
Assessment / Plan
Assessment / Plan
Impression:
89-year-old female past medical history of CHF, atrial fibrillation on Eliquis with pacemaker, CAD, COPD, hypertension, hyperlipidemia, GERD, CKD 3, presenting for cough and vomiting. � She had an episode of left-sided chest pain, chest x-ray shows
subtle right lower lobe infiltrate and trace effusion, started on Rocephin and Doxy.
Assessment/plan:
Severe sepsis with acute organ dysfunction secondary to community acquired pneumonia
-Chest x-ray shows subtle right lower lobe infiltrate and trace effusion
Patient meets sepsis criteria on admission with leukocytosis, tachypnea, fever
Currently on 2 L, wean oxygen as tolerated. CXR 07/30 with PNA
Temp 100.4 07/29, blood culture NGTD
- COVID and flu negative
-RSV negative
- Ceftriaxone/doxycycline
Acute hypoxic respiratory insufficiency secondary to pneumonia
Patient dropped oxygen level to 89% in the ER
Currently on 2 L, wean oxygen as tolerated
Vomiting likely secondary to viral gastroenteritis
- Has some mild abdominal tenderness
- Vomiting improved
- No diarrhea
- regular diet
History of heart failure
Unknown type, no recent echo in the chart
-No acute exacerbation.
resume lasix. Monitor volume status closely
Paroxysmal atrial fibrillation with pacemaker -currently sinus rhythm
- Continue Eliquis
- Continue Cardizem
- Continue metoprolol
CAD
Exoskeletal chest pain but otherwise no evidence of acute coronary syndrome
Continue metoprolol
COPD
- Continue inhalers
History of hypertension
Continue home meds
Hyperlipidemia
- Continue statin
GERD
- Continue esomeprazole
CKD 3
- Renal function at baseline
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
Anxiety/depression
- Continue paroxetine
CODE STATUS:DNR/DNI
DVT prophylaxis: Eliquis
General: Well Developed, Well Nourished, No Apparent Distress and Comfortable
HEENT: Normocephalic, Atraumatic, Moist Mucous Membranes, hearing deficit
Respiratory: Rales, Rhonchi, Crackles and Non Labored Respirations
Cardiac: Regular Rhythm and S1/S2
GI: Soft, Nontender, Nondistended and Normal Bowel Sounds
Musculoskeletal: No Edema
Neuro: Awake, Alert, Oriented, AO x 3 and No Motor Deficits
Psych: Calm
I spent a total of 51 minutes with the patient or on the floor. More than 50% of this time involved counseling and coordination of care.
Anticipated Discharge: Today
Subjective/Interval History
-
Date of Service: July 30, 2024
denies pain
Objective Data
-
Labs:
Laboratory Results
07/30/24
06:11
WBC 11.3 H
Hgb 9.7 L
Hct 29.2 L
Plt Count 231
Sodium 139
Potassium 4.4
Chloride 106
Carbon Dioxide 24
BUN 22 H
Creatinine 1.0
Glucose 101 H
Calcium 8.8
Vital Signs:
Vital Signs
Temp Pulse Resp BP Pulse Ox
98.5 F 74 18 116/53 93
07/30/24 07:45 07/30/24 07:45 07/30/24 07:45 07/30/24 07:45 07/30/24 07:45
I&O
07/29/24 07/30/24 07/31/24
06:59 06:59 06:59
Intake Total 1320 / 1320 480 / 480
Balance 1320 / 1320 480 / 480
[2024-07-30] MEDS: LASIX 20 MG PO (13:00)
[2024-07-30] MEDS: STERILE WATER FOR INJECTION 10 ML IV (13:02)
[2024-07-30] MEDS: ROCEPHIN 1000 MG IV (13:02)
[2024-07-30 14:51] VITALS: PULSE 61; O2SAT 91
[2024-07-30 15:35] VITALS: BP 131/57
[2024-07-30] MEDS: CRESTOR 20 MG PO (17:06)
[2024-07-30] MEDS: PAXIL 20 MG PO (17:06)
--- NOTE | 2024-07-30 17:29 | CM ---
Placed a call to patient's daughter, Tish with whom patient lives. She stated that patient lives with her in a two story home with one step to enter. Patient is supervision for all ADLs, personal care, dressing and bathing and patient's daughter
does all of the cooking, cleaning, laundry and promotions director. Patient's daughter stated that she is always supervised. Patient uses a walker in the community and a cane indoors. She also has a shower chair. She has had VN in the past but is not
current. She has never been to a SNF.
Patient has a prescription plan and uses, [facility] in [place] for all of her medications.
Her PCP is, Harvey Napoles.
Plan: Case management will continue to follow and assist with discharge planning. Patient's daughter is hoping that she can come right home when discharged.
[2024-07-30] MEDS: SENOKOT 8.6 MG PO (19:32)
[2024-07-30 23:04] VITALS: BP 114/45
[2024-07-31 05:53] VITALS: BMI 23.5
[2024-07-31] MEDS: ELIQUIS 2.5 MG PO ×2 (07:23→20:19)
[2024-07-31] MEDS: PROTONIX 40 MG PO (07:23)
[2024-07-31] MEDS: VITAMIN D3 (cholecalciferol) 50 MCG PO (07:23)
[2024-07-31] MEDS: LASIX 20 MG PO (07:23)
[2024-07-31] MEDS: CARDIZEM CD 240 MG PO (07:23)
[2024-07-31] MEDS: FEOSOL 325 MG PO (07:23)
[2024-07-31] MEDS: VIBRAMYCIN 100 MG PO ×2 (07:23→20:19)
[2024-07-31] MEDS: TOPROL XL 100 MG PO ×2 (07:23→20:19)
[2024-07-31 07:30] VITALS: BP 136/57
[2024-07-31] MEDS: ADVAIR HFA 115/21 MCG INHALER 2 PUFF INH ×2 (07:36→19:46)
[2024-07-31 08:53] LABS: % Basophils 0.3 % (0-2); % Eosinophils 2.9 % (0-6); % Immature Granulocytes 0.8 % (0-0.5); % Lymphocytes 11.5 % (20.5-51.1); % Monocytes 11.2 % (1.7-9.3); % Neutrophils 73.3 % (42.2-75.2); Absolute Eosinophils 0.3 10^3/uL (0-0.7); Absolute Immature Granulocytes 0.1 10^3/uL (0-0.05); Absolute Lymphocytes 1.2 10^3/uL (1.2-3.4); Absolute Monocytes 1.2 10^3/uL (0.1-0.6); Absolute Neutrophils 7.7 10^3/uL (1.4-6.5); Hematocrit 28.5 % (37.0-47.0); Hemoglobin 9.7 g/dL (12.0-16.0); Mean Corpuscular Hgb 32.7 pg (27.0-31.0); Mean Platelet Volume 10.8 fL (7.4-10.4); Nucleated Red Blood Cells % 0 %; Platelet Count 262 10^3/uL (130-400); Red Blood Cell Count 2.97 10^6/uL (4.20-5.40); Red Cell Dist. Width 12.4 % (11.5-14.5); White Blood Cell Count 10.5 10^3/uL (4.8-10.8)
[2024-07-31 09:53] LABS: Blood Urea Nitrogen 19 mg/dl (7-17); Calcium 8.8 mg/dl (8.4-10.2); Carbon Dioxide 26 mmol/L (22-30); Chloride 104 mmol/L (98-107); Estimated Creatinine Clearance 30 ml/min; Glucose 97 mg/dl (70-99); Potassium 4.1 mmol/L (3.5-5.1); Sodium 137 mmol/L (135-145); eGFR 53.85
--- NOTE | 2024-07-31 10:30 | PTOTSP ---
Speech Language Pathology
VIDEOFLUOROSCOPIC SWALLOWING EXAMINATION (VSE) completed. Normal oropharyngeal swallow. No significant pharyngeal residue or any penetration/aspiration. Esophageal sweep demonstrated residue without backflow.
Recommend:
(1) Regular solids/thin liquids
(2) General aspiration precautions
(3) Meds as tolerated
(4) Consider OP GI if esophageal complaints noted
(5) WHOLESALE AND RETAIL MERCHANT to sign off. Please reconsult as indicated
--- NOTE | 2024-07-31 11:30 | W.PN.HOSP.TC ---
Today's Communication/Plan
-
monitor vitals
see plan
check BNP
wean o2 as tolerated
VSE today
cw abx
lasix
Assessment / Plan
Assessment / Plan
Impression:
89-year-old female past medical history of CHF, atrial fibrillation on Eliquis with pacemaker, CAD, COPD, hypertension, hyperlipidemia, GERD, CKD 3, presenting for cough and vomiting. � She had an episode of left-sided chest pain, chest x-ray shows
subtle right lower lobe infiltrate and trace effusion, started on Rocephin and Doxy.
Assessment/plan:
Severe sepsis with acute organ dysfunction secondary to community acquired pneumonia
does not appear PNA from aspiration at this time
-Chest x-ray shows subtle right lower lobe infiltrate and trace effusion
Patient meets sepsis criteria on admission with leukocytosis, tachypnea, fever
Currently on 2 L, wean oxygen as tolerated. CXR 07/30 with PNA
Temp 100.4 07/29, blood culture NGTD
- COVID and flu negative
-RSV negative
- cw Ceftriaxone/doxycycline
Speech following, given recurrent pneumonia need VSE. VSE pending
Acute hypoxic respiratory insufficiency secondary to pneumonia
Patient dropped oxygen level to 89% in the ER
Currently on 2 L, wean oxygen as tolerated
Vomiting likely secondary to viral gastroenteritis
- Has some mild abdominal tenderness
- Vomiting improved
- No diarrhea
- regular diet
History of heart failure
Unknown type, no recent echo in the chart
-No acute exacerbation.
resume lasix. Monitor volume status closely
Volume status is difficult to navigate, check BNP
Paroxysmal atrial fibrillation with pacemaker -currently sinus rhythm
- Continue Eliquis
- Continue Cardizem
- Continue metoprolol
CAD
Exoskeletal chest pain but otherwise no evidence of acute coronary syndrome
Continue metoprolol
COPD
- Continue inhalers
History of hypertension
Continue home meds
Hyperlipidemia
- Continue statin
GERD
- Continue esomeprazole
CKD 3
- Renal function at baseline
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
Anxiety/depression
- Continue paroxetine
CODE STATUS:DNR/DNI
DVT prophylaxis: Eliquis
General: Well Developed, Well Nourished, No Apparent Distress and Comfortable
HEENT: Normocephalic, Atraumatic, Moist Mucous Membranes, hearing deficit
Respiratory: Rales, Rhonchi, Crackles and Non Labored Respirations
Cardiac: Regular Rhythm and S1/S2
GI: Soft, Nontender, Nondistended and Normal Bowel Sounds
Musculoskeletal: No Edema
Neuro: Awake, Alert, Oriented, AO x 3 and No Motor Deficits
Psych: Calm
I spent a total of 53 minutes with the patient or on the floor. More than 50% of this time involved counseling and coordination of care.
Anticipated Discharge: 24 - 48 hours
Subjective/Interval History
-
Date of Service: July 31, 2024
has cough
Objective Data
-
Labs:
Laboratory Results
07/31/24
08:05
WBC 10.5
Hgb 9.7 L
Hct 28.5 L
Plt Count 262
Sodium 137
Potassium 4.1
Chloride 104
Carbon Dioxide 26
BUN 19 H
Creatinine 1.0
Glucose 97
Calcium 8.8
Vital Signs:
Vital Signs
Temp Pulse Resp BP Pulse Ox
98.0 F 79 16 136/57 94
07/31/24 07:30 07/31/24 07:41 07/31/24 07:41 07/31/24 07:30 07/31/24 07:41
I&O
07/30/24 07/31/24 08/01/24
06:59 06:59 06:59
Intake Total 480 / 480 1320 / 1320
Balance 480 / 480 1320 / 1320
[2024-07-31] MEDS: STERILE WATER FOR INJECTION 10 ML IV (13:09)
[2024-07-31] MEDS: ROCEPHIN 1000 MG IV (13:09)
[2024-07-31] MEDS: TYLENOL 650 MG PO (13:15)
[2024-07-31 15:40] VITALS: BP 118/60
[2024-07-31] MEDS: CRESTOR 20 MG PO (17:34)
[2024-07-31] MEDS: PAXIL 20 MG PO (17:34)
[2024-07-31 17:36] LABS: NT-proBNP 8620 pg/ml
[2024-07-31] MEDS: SENOKOT 8.6 MG PO (20:21)
[2024-07-31 23:17] VITALS: BP 128/59
[2024-08-01] MEDS: TYLENOL 650 MG PO ×2 (03:07→17:17)
[2024-08-01 05:41] VITALS: BMI 23.4
[2024-08-01 07:15] VITALS: BP 120/57
[2024-08-01] MEDS: PROTONIX 40 MG PO (07:15)
[2024-08-01] MEDS: FEOSOL 325 MG PO (07:15)
[2024-08-01] MEDS: LASIX 20 MG PO (07:15)
[2024-08-01] MEDS: VIBRAMYCIN 100 MG PO ×2 (07:15→20:25)
[2024-08-01] MEDS: TOPROL XL 100 MG PO ×2 (07:15→20:29)
[2024-08-01] MEDS: VITAMIN D3 (cholecalciferol) 50 MCG PO (07:15)
[2024-08-01] MEDS: ELIQUIS 2.5 MG PO ×2 (07:16→20:25)
[2024-08-01] MEDS: CARDIZEM CD 240 MG PO (07:16)
[2024-08-01] MEDS: ADVAIR HFA 115/21 MCG INHALER 2 PUFF INH ×2 (07:22→19:28)
[2024-08-01 07:42] LABS: % Basophils 0.3 % (0-2); % Eosinophils 3.3 % (0-6); % Immature Granulocytes 0.8 % (0-0.5); % Lymphocytes 13.2 % (20.5-51.1); % Monocytes 9.5 % (1.7-9.3); % Neutrophils 72.9 % (42.2-75.2); Absolute Eosinophils 0.3 10^3/uL (0-0.7); Absolute Immature Granulocytes 0.1 10^3/uL (0-0.05); Absolute Lymphocytes 1.3 10^3/uL (1.2-3.4); Absolute Neutrophils 7.4 10^3/uL (1.4-6.5); Hematocrit 31.3 % (37.0-47.0); Hemoglobin 10.4 g/dL (12.0-16.0); Mean Corp Hgb Conc. 33.2 g/dL (33.0-37.0); Mean Corpuscular Hgb 32.2 pg (27.0-31.0); Mean Corpuscular Volume 96.9 fL (81.0-99.0); Mean Platelet Volume 10.7 fL (7.4-10.4); Nucleated Red Blood Cells % 0 %; Platelet Count 295 10^3/uL (130-400); Red Blood Cell Count 3.23 10^6/uL (4.20-5.40); Red Cell Dist. Width 12.4 % (11.5-14.5); White Blood Cell Count 10.1 10^3/uL (4.8-10.8)
[2024-08-01 08:02] LABS: Blood Urea Nitrogen 18 mg/dl (7-17); Calcium 8.9 mg/dl (8.4-10.2); Carbon Dioxide 28 mmol/L (22-30); Chloride 102 mmol/L (98-107); Estimated Creatinine Clearance 30 ml/min; Glucose 104 mg/dl (70-99); Sodium 139 mmol/L (135-145); eGFR 53.85
[2024-08-01] MEDS: LASIX 20 MG IV (08:48)
[2024-08-01 10:40] VITALS: PULSE 71; O2SAT 95
[2024-08-01 11:14] VITALS: BP 124/55; O2SAT 96
--- NOTE | 2024-08-01 13:06 | W.PN.HOSP.TC ---
Today's Communication/Plan
-
monitor vitals
see plan
Wean oxygen as tolerated
Trial of IV Lasix
Continue antibiotics
Discussed with daughter over the phone
Assessment / Plan
Assessment / Plan
Impression:
89-year-old female past medical history of CHF, atrial fibrillation on Eliquis with pacemaker, CAD, COPD, hypertension, hyperlipidemia, GERD, CKD 3, presenting for cough and vomiting. � She had an episode of left-sided chest pain, chest x-ray shows
subtle right lower lobe infiltrate and trace effusion, started on Rocephin and Doxy.
Assessment/plan:
Severe sepsis with acute organ dysfunction secondary to community acquired pneumonia
does not appear PNA from aspiration at this time
-Chest x-ray shows subtle right lower lobe infiltrate and trace effusion
Patient meets sepsis criteria on admission with leukocytosis, tachypnea, fever
Currently on 2 L, wean oxygen as tolerated. CXR 07/30 with PNA
Temp 100.4 07/29, blood culture NGTD
- COVID and flu negative
-RSV negative
- cw Ceftriaxone/doxycycline
Speech following, given recurrent pneumonia need VSE. VSE noted. Outpatient follow-up with GI
Acute hypoxic respiratory insufficiency secondary to pneumonia
Patient dropped oxygen level to 89% in the ER
Currently on 2 L, wean oxygen as tolerated
Vomiting likely secondary to viral gastroenteritis
- Has some mild abdominal tenderness
- Vomiting improved
- No diarrhea
- regular diet
History of heart failure
Unknown type, no recent echo in the chart
-suspect acute on chronic due to poor dietary compliance
trial of IV lasix. Monitor volume status closely
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
Paroxysmal atrial fibrillation with pacemaker -currently sinus rhythm
- Continue Eliquis
- Continue Cardizem
- Continue metoprolol
CAD
Exoskeletal chest pain but otherwise no evidence of acute coronary syndrome
Continue metoprolol
COPD
- Continue inhalers
History of hypertension
Continue home meds
Hyperlipidemia
- Continue statin
GERD
- Continue esomeprazole
CKD 3
- Renal function at baseline
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
Anxiety/depression
- Continue paroxetine
CODE STATUS:DNR/DNI
DVT prophylaxis: Eliquis
General: Well Developed, Well Nourished, No Apparent Distress and Comfortable
HEENT: Normocephalic, Atraumatic, Moist Mucous Membranes, hearing deficit
Respiratory: Rales, Rhonchi, Crackles and Non Labored Respirations
Cardiac: Regular Rhythm and S1/S2
GI: Soft, Nontender, Nondistended and Normal Bowel Sounds
Musculoskeletal: No Edema
Neuro: Awake, Alert, Oriented, AO x 3 and No Motor Deficits
Psych: Calm
I spent a total of 52 minutes with the patient or on the floor. More than 50% of this time involved counseling and coordination of care.
Anticipated Discharge: Within 24 hours
Subjective/Interval History
-
Date of Service: August 01, 2024
still need o2
Objective Data
-
Labs:
Laboratory Results
08/01/24
06:48
WBC 10.1
Hgb 10.4 L
Hct 31.3 L
Plt Count 295
Sodium 139
Potassium 4.0
Chloride 102
Carbon Dioxide 28
BUN 18 H
Creatinine 1.0
Glucose 104 H
Calcium 8.9
Vital Signs:
Vital Signs
Temp Pulse Resp BP Pulse Ox
98.5 F 73 16 120/57 95
08/01/24 07:15 08/01/24 07:24 08/01/24 07:24 08/01/24 07:15 08/01/24 07:24
I&O
07/31/24 08/01/24 08/02/24
06:59 06:59 06:59
Intake Total 1320 / 1320 980 / 980
Balance 1320 / 1320 980 / 980
[2024-08-01] MEDS: STERILE WATER FOR INJECTION 10 ML IV (13:49)
[2024-08-01] MEDS: ROCEPHIN 1000 MG IV (13:49)
[2024-08-01 15:26] VITALS: BP 122/55
[2024-08-01] MEDS: PAXIL 20 MG PO (17:13)
[2024-08-01] MEDS: CRESTOR 20 MG PO (17:13)
[2024-08-01] MEDS: SENOKOT 8.6 MG PO (20:25)
[2024-08-01] MEDS: FLUSH (NSS) 1 FLUSH IV (20:36)
[2024-08-01 23:54] VITALS: BP 121/57
[2024-08-02] MEDS: TYLENOL 650 MG PO ×2 (05:02→20:12)
[2024-08-02 06:00] VITALS: BMI 23.1
[2024-08-02 07:10] LABS: % Basophils 0.1 % (0-2); % Eosinophils 3.7 % (0-6); % Immature Granulocytes 0.7 % (0-0.5); % Lymphocytes 15.6 % (20.5-51.1); % Monocytes 9.4 % (1.7-9.3); % Neutrophils 70.5 % (42.2-75.2); Absolute Eosinophils 0.3 10^3/uL (0-0.7); Absolute Immature Granulocytes 0.1 10^3/uL (0-0.05); Absolute Lymphocytes 1.4 10^3/uL (1.2-3.4); Absolute Monocytes 0.9 10^3/uL (0.1-0.6); Absolute Neutrophils 6.5 10^3/uL (1.4-6.5); Hematocrit 28.1 % (37.0-47.0); Hemoglobin 9.6 g/dL (12.0-16.0); Mean Corp Hgb Conc. 34.2 g/dL (33.0-37.0); Mean Corpuscular Hgb 32.7 pg (27.0-31.0); Mean Corpuscular Volume 95.6 fL (81.0-99.0); Mean Platelet Volume 10.2 fL (7.4-10.4); Nucleated Red Blood Cells % 0 %; Platelet Count 273 10^3/uL (130-400); Red Blood Cell Count 2.94 10^6/uL (4.20-5.40); Red Cell Dist. Width 12.2 % (11.5-14.5); White Blood Cell Count 9.2 10^3/uL (4.8-10.8)
[2024-08-02 08:08] LABS: Blood Urea Nitrogen 20 mg/dl (7-17); Calcium 8.8 mg/dl (8.4-10.2); Carbon Dioxide 29 mmol/L (22-30); Chloride 102 mmol/L (98-107); Estimated Creatinine Clearance 30 ml/min; Glucose 93 mg/dl (70-99); Sodium 139 mmol/L (135-145); eGFR 53.85
[2024-08-02] MEDS: TOPROL XL 100 MG PO ×2 (08:16→20:12)
[2024-08-02] MEDS: FEOSOL 325 MG PO (08:17)
[2024-08-02] MEDS: CARDIZEM CD 240 MG PO (08:17)
[2024-08-02] MEDS: PROTONIX 40 MG PO (08:17)
[2024-08-02] MEDS: VITAMIN D3 (cholecalciferol) 50 MCG PO (08:17)
[2024-08-02] MEDS: VIBRAMYCIN 100 MG PO ×2 (08:17→20:12)
[2024-08-02] MEDS: ELIQUIS 2.5 MG PO ×2 (08:17→20:12)
[2024-08-02] MEDS: ADVAIR HFA 115/21 MCG INHALER 2 PUFF INH ×2 (08:25→19:19)
[2024-08-02 08:31] VITALS: BP 116/63
[2024-08-02] MEDS: LASIX 20 MG IV (09:41)
--- NOTE | 2024-08-02 11:06 | PTCARENOTE ---
Assumed care of pt from previous nurse. Pt denies pain. pt is on 2L's sating at 98%. Pt tired, sleeping on and off. Pt call palacio is within reach, pt rings sulma. will cont to monitor.
--- NOTE | 2024-08-02 13:09 | W.PN.HOSP.TC ---
Today's Communication/Plan
-
Monitor vital signs see plan
Continue with IV Lasix today
Wean oxygen as tolerated
Check for home O2
Continue antibiotics
Assessment / Plan
Assessment / Plan
Impression:
89-year-old female past medical history of CHF, atrial fibrillation on Eliquis with pacemaker, CAD, COPD, hypertension, hyperlipidemia, GERD, CKD 3, presenting for cough and vomiting. � She had an episode of left-sided chest pain, chest x-ray shows
subtle right lower lobe infiltrate and trace effusion, started on Rocephin and Doxy.
Assessment/plan:
Severe sepsis with acute organ dysfunction secondary to community acquired pneumonia
does not appear PNA from aspiration at this time
-Chest x-ray shows subtle right lower lobe infiltrate and trace effusion
Patient meets sepsis criteria on admission with leukocytosis, tachypnea, fever
Currently on 2-3 L, wean oxygen as tolerated. CXR 07/30 with PNA. Check home O2 evaluation
Temp 100.4 07/29, blood culture NGTD
- COVID and flu negative
-RSV negative
- cw Ceftriaxone/doxycycline
Speech following, given recurrent pneumonia need VSE. VSE noted. Outpatient follow-up with GI
Acute hypoxic respiratory insufficiency secondary to pneumonia
Patient dropped oxygen level to 89% in the ER
Currently on 2-3 L, wean oxygen as tolerated
Vomiting likely secondary to viral gastroenteritis
- Has some mild abdominal tenderness, improving
- Vomiting improved
- No diarrhea
History of heart failure
Unknown type, no recent echo in the chart
-suspect acute on chronic due to poor dietary compliance
trial of IV lasix. Monitor volume status closely
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
Paroxysmal atrial fibrillation with pacemaker -currently sinus rhythm
- Continue Eliquis
- Continue Cardizem
- Continue metoprolol
CAD
Exoskeletal chest pain but otherwise no evidence of acute coronary syndrome
Continue metoprolol
COPD
- Continue inhalers
History of hypertension
Continue home meds
Hyperlipidemia
- Continue statin
GERD
- Continue esomeprazole
CKD 3
- Renal function at baseline
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
Anxiety/depression
- Continue paroxetine
CODE STATUS:DNR/DNI
DVT prophylaxis: Eliquis
General: Well Developed, Well Nourished, No Apparent Distress and Comfortable
HEENT: Normocephalic, Atraumatic, Moist Mucous Membranes, hearing deficit
Respiratory: Rales, Rhonchi, Crackles and Non Labored Respirations
Cardiac: Regular Rhythm and S1/S2
GI: Soft, Nontender, Nondistended and Normal Bowel Sounds
Musculoskeletal: No Edema
Neuro: Awake, Alert, Oriented, AO x 3 and No Motor Deficits
Psych: Calm
I spent a total of 51 minutes with the patient or on the floor. More than 50% of this time involved counseling and coordination of care.
Anticipated Discharge: Within 24 hours
Subjective/Interval History
-
Date of Service: August 02, 2024
Denies pain
Objective Data
-
Labs:
Laboratory Results
08/02/24
06:18
WBC 9.2
Hgb 9.6 L
Hct 28.1 L
Plt Count 273
Sodium 139
Potassium 4.0
Chloride 102
Carbon Dioxide 29
BUN 20 H
Creatinine 1.0
Glucose 93
Calcium 8.8
Vital Signs:
Vital Signs
Temp Pulse Resp BP Pulse Ox
97.8 F 73 18 125/62 98
08/02/24 08:31 08/02/24 09:41 08/02/24 08:31 08/02/24 09:41 08/02/24 08:31
I&O
08/01/24 08/02/24 08/03/24
06:59 06:59 06:59
Intake Total 980 / 980 940 / 940
Output Total 1275 / 1275
Balance 980 / 980 -335 / -335
[2024-08-02] MEDS: ROCEPHIN 1000 MG IV (15:03)
[2024-08-02] MEDS: STERILE WATER FOR INJECTION 10 ML IV (15:05)
[2024-08-02 16:28] VITALS: BP 119/50
[2024-08-02] MEDS: CRESTOR 20 MG PO (17:17)
[2024-08-02] MEDS: PAXIL 20 MG PO (17:17)
[2024-08-02] MEDS: SENOKOT 8.6 MG PO (20:12)
[2024-08-02 23:55] VITALS: BP 123/44
[2024-08-03 06:00] VITALS: BMI 22.8
[2024-08-03 06:37] LABS: % Basophils 0.3 % (0-2); % Immature Granulocytes 0.8 % (0-0.5); % Lymphocytes 17.3 % (20.5-51.1); % Monocytes 8.2 % (1.7-9.3); % Neutrophils 69.4 % (42.2-75.2); Absolute Eosinophils 0.4 10^3/uL (0-0.7); Absolute Immature Granulocytes 0.1 10^3/uL (0-0.05); Absolute Lymphocytes 1.7 10^3/uL (1.2-3.4); Absolute Monocytes 0.8 10^3/uL (0.1-0.6); Absolute Neutrophils 6.9 10^3/uL (1.4-6.5); Hematocrit 31.2 % (37.0-47.0); Hemoglobin 10.5 g/dL (12.0-16.0); Mean Corp Hgb Conc. 33.7 g/dL (33.0-37.0); Mean Corpuscular Hgb 32.3 pg (27.0-31.0); Mean Platelet Volume 10.3 fL (7.4-10.4); Nucleated Red Blood Cells % 0 %; Platelet Count 327 10^3/uL (130-400); Red Blood Cell Count 3.25 10^6/uL (4.20-5.40); Red Cell Dist. Width 12.2 % (11.5-14.5)
[2024-08-03 07:06] LABS: Blood Urea Nitrogen 22 mg/dl (7-17); Carbon Dioxide 32 mmol/L (22-30); Chloride 102 mmol/L (98-107); Estimated Creatinine Clearance 30 ml/min; Glucose 92 mg/dl (70-99); Potassium 4.3 mmol/L (3.5-5.1); Sodium 141 mmol/L (135-145); eGFR 53.85
[2024-08-03 07:55] VITALS: BP 111/45
[2024-08-03] MEDS: ADVAIR HFA 115/21 MCG INHALER 2 PUFF INH (08:11)
[2024-08-03] MEDS: FEOSOL 325 MG PO (08:39)
[2024-08-03] MEDS: TOPROL XL 100 MG PO (08:39)
[2024-08-03] MEDS: ELIQUIS 2.5 MG PO (08:39)
[2024-08-03] MEDS: VIBRAMYCIN 100 MG PO (08:39)
[2024-08-03] MEDS: PROTONIX 40 MG PO (08:39)
[2024-08-03] MEDS: VITAMIN D3 (cholecalciferol) 50 MCG PO (08:39)
[2024-08-03] MEDS: CARDIZEM CD 240 MG PO (08:39)
[2024-08-03] MEDS: STERILE WATER FOR INJECTION IV (08:51)
--- NOTE | 2024-08-03 10:58 | W.PN.HOSP.TC ---
Today's Communication/Plan
-
Monitor vitals
See plan
Restart p.o. Lasix
Oxygen improved, does not require home O2. Now on room air
Finished antibiotics
Discharge today
Discussed with daughter
Time of discharge 38 minutes
Assessment / Plan
Assessment / Plan
Impression:
89-year-old female past medical history of CHF, atrial fibrillation on Eliquis with pacemaker, CAD, COPD, hypertension, hyperlipidemia, GERD, CKD 3, presenting for cough and vomiting. � She had an episode of left-sided chest pain, chest x-ray shows
subtle right lower lobe infiltrate and trace effusion, started on Rocephin and Doxy.
Assessment/plan:
Severe sepsis with acute organ dysfunction secondary to community acquired pneumonia
does not appear PNA from aspiration at this time
-Chest x-ray shows subtle right lower lobe infiltrate and trace effusion
Patient meets sepsis criteria on admission with leukocytosis, tachypnea, fever
Currently on 2-3 L, wean oxygen as tolerated. CXR 07/30 with PNA. Check home O2 evaluation
Temp 100.4 07/29, blood culture NGTD
- COVID and flu negative
-RSV negative
Finished antibiotics
Speech following, given recurrent pneumonia need VSE. VSE noted. Outpatient follow-up with GI
Acute hypoxic respiratory insufficiency secondary to pneumonia
Patient dropped oxygen level to 89% in the ER
now improved and on room air; per ambulatory pulse ox today, does not require home O2.
Vomiting likely secondary to viral gastroenteritis
- Has some mild abdominal tenderness, improving
- Vomiting improved
- No diarrhea
History of heart failure
Unknown type, no recent echo in the chart
-suspect acute on chronic due to poor dietary compliance
trial of IV lasix. Monitor volume status closely. Symptoms improved. Transition to p.o. Lasix. Patient will follow-up with cardiology outpatient
Volume status is difficult to slab grinder; BNP elevated
Paroxysmal atrial fibrillation with pacemaker -currently sinus rhythm
- Continue Eliquis
- Continue Cardizem
- Continue metoprolol
CAD
Exoskeletal chest pain but otherwise no evidence of acute coronary syndrome
Continue metoprolol
COPD
- Continue inhalers
History of hypertension
Continue home meds
Hyperlipidemia
- Continue statin
GERD
- Continue esomeprazole
CKD 3
- Renal function at baseline
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
Anxiety/depression
- Continue paroxetine
CODE STATUS:DNR/DNI
DVT prophylaxis: Eliquis
General: Well Developed, Well Nourished, No Apparent Distress and Comfortable
HEENT: Normocephalic, Atraumatic, Moist Mucous Membranes, hearing deficit
Respiratory: Rales, Rhonchi, Crackles and Non Labored Respirations
Cardiac: Regular Rhythm and S1/S2
GI: Soft, Nontender, Nondistended and Normal Bowel Sounds
Musculoskeletal: No Edema
Neuro: Awake, Alert, Oriented, AO x 3 and No Motor Deficits
Psych: Calm
Anticipated Discharge: Today
Subjective/Interval History
-
Date of Service: August 03, 2024
denies pain
Objective Data
-
Labs:
Laboratory Results
08/03/24
05:55
WBC 10.0
Hgb 10.5 L
Hct 31.2 L
Plt Count 327
Sodium 141
Potassium 4.3
Chloride 102
Carbon Dioxide 32 H
BUN 22 H
Creatinine 1.0
Glucose 92
Calcium 9.0
Vital Signs:
Vital Signs
Temp Pulse Resp BP Pulse Ox
98.8 F 70 16 111/45 93
08/03/24 07:55 08/03/24 08:12 08/03/24 08:12 08/03/24 07:55 05/11/25 08:15
I&O
08/02/24 08/03/24 08/04/24
06:59 06:59 06:59
Intake Total 940 / 940 360 / 360
Output Total 1275 / 1275 1150 / 1150 300 / 300
Balance -335 / -335 -1150 / -1150 60 / 60
--- NOTE | 2024-08-03 11:21 | W.DCSUMMARY ---
Discharge Summary
Discharge Data
Date of Admission: 07/26/24
Date of Discharge: 08/03/24
-
Pending Results: No
Hospital Course
89-year-old female past medical history of atrial fibrillation, CHF, pacemaker, CAD, COPD, hypertension, arrhythmia, CKD stage III, GERD came to the hospital with community-acquired pneumonia. Patient was initially started on IV antibiotics. She
also required oxygenation on this hospitalization. She finished antibiotics course prior to discharge. She was also seen by speech therapy who recommended video swallow study which did not show any signs of acute abnormality. Patient was able to
tolerate regular diet however per speech recommendation was instructed to follow-up with GI outpatient. Patient continued to be hypoxic and proBNP was checked which was high consistent with possible acute on chronic congestive heart failure due to
fluids and poor dietary compliance. Patient was then started on IV Lasix which improved her symptoms. Prior to discharge she was able to be weaned off oxygen. Once her symptoms continue to improve, she was then discharged home with instructions
to follow-up with all her physicians outpatient.
Discharge Plan
-
Patient Disposition: Home (Routine Discharge)
Discharge Diagnosis/Procedures: Severe sepsis with acute organ dysfunction secondary to community acquired pneumonia
Acute hypoxic respiratory insufficiency secondary to pneumonia
suspect acute on chronic CHF
Diet: As tolerated and Restrict fluids to 48 oz
Activity: No restrictions
Driving Restrictions: As prior to admission
Bathing Restrictions: None
Specialty Instructions: Weigh Daily- Call MD for wt gain/loss 3 lbs overnight/5 lbs in 1 week
Activity Restrictions/Additional Instructions:
Follow-up with your antisqueak applier soon outpatient
Referrals:
Pablito Lion MD [Active] -
Harvey Napoles DO [Family Provider] - in less than 1 week
Prescriptions:
Continued
paroxetine HCl 20 MG tablet
20 mg PO QPM
rosuvastatin 20 mg Tablet
20 mg PO QPM
cholecalciferol (vitamin D3) 2,000 UNIT tablet
2,000 unit PO DAILY
fluticasone propion-salmeterol 250-50 mcg/dose Blister With Device
1 inh INHALATION R BID
Patient Comments:
daughter says that patient has stopped using this because she is currently using nebs TID
sennosides [senna] 8.6 mg Tablet
8.6 mg PO HS
metoprolol succinate 100 mg Tablet Extended Release 24 Hr
100 mg PO BID
diltiazem HCl 240 mg Capsule,Extended Release 24 Hr
240 mg PO DAILY
ferrous sulfate 325 mg (65 mg iron) Tablet
325 mg PO DAILY
furosemide 20 mg Tablet
20 mg PO DAILY
Eliquis 2.5 mg Tablet
2.5 mg PO BID
acetaminophen 500 mg Tablet
1,000 mg PO DAILYPRN PRN (Reason: mild pain)
pantoprazole 40 mg Tablet,Delayed Release (Dr/Ec)
40 mg PO DAILY
Preparation H 0.25-14-74.9 % Ointment
1 applic [place] HSPRN PRN (Reason: hemmorhoids)
albuterol sulfate 2.5 mg /3 mL (0.083 %) Solution For Nebulization
2.5 mg INHALATION R QIDPRN PRN (Reason: sob)
Discharge Orders:
Discharge Patient (As Directed); Ordered 08/03/24
Ordered By: Suleiman Patel
Discharge Date and Time
Discharge Date/Time: 08/03/24 15:21
Print Language: MARTINIQUAIS
--- NOTE | 2024-08-03 11:42 | CM ---
MD entered order for discharge.
Pt weaned off OXYGEN.
Spoke with dgt Bing She agrees with dc and IMM.
Offered VN she requested [facility] .
Referral placed.
Dgt will drive her home.
PLAN Home with [facility]
[2024-08-03 12:53] VITALS: BP 98/52
== END 2024-08-03 15:21 | disposition home health service (06) | DRG 871 ==
LOC: 4 EAST ACU 14:43
PROVIDERS: General Practice; Physician Assistant; ADMITTING PHYSICIAN Hospitalist; ATTENDING PHYSICIAN Internal Medicine; EMERGENCY PHYSICIAN Emergency Medicine; FAMILY PHYSICIAN Family Medicine
DX: A41.89 Other specified sepsis (principal); J18.9 Pneumonia, unspecified organism; J96.01 Acute respiratory failure with hypoxia; I13.0 Hypertensive heart and chronic kidney disease with heart failure and stage 1 through stage 4 chronic kidney disease, or unspecified chronic kidney disease; J44.0 Chronic obstructive pulmonary disease with (acute) lower respiratory infection; A08.4 Viral intestinal infection, unspecified; I48.0 Paroxysmal atrial fibrillation; N18.30 Chronic kidney disease, stage 3 unspecified; I50.9 Heart failure, unspecified; I25.10 Atherosclerotic heart disease of native coronary artery without angina pectoris; K21.9 Gastro-esophageal reflux disease without esophagitis; Z66 Do not resuscitate; Z95.0 Presence of cardiac pacemaker; Z79.01 Long term (current) use of anticoagulants
CPT/HCPCS: 71046; 74230; 80048; 80053; 83690; 83735; 83880; 84484; 85025; 85027; 87040; 87502; 87807; 87811; 92526; 92610; 92611; 93005; 94640; 96374; 97116; 97162; 97166; 97530; 97535; 99285

== ENCOUNTER 2024-10-30 01:55 | Emergency (ER) | payer OTHER, SELFPAY ==
[2024-10-30 02:00] VITALS: BP 135/74
[2024-10-30 02:19] VITALS: BMI 23.9
[2024-10-30 02:36] LABS: Hematocrit 34.7 % (37.0-47.0); Hemoglobin 11.5 g/dL (12.0-16.0); Mean Corp Hgb Conc. 33.1 g/dL (33.0-37.0); Mean Corpuscular Volume 97.5 fL (81.0-99.0); Nucleated Red Blood Cells % 0 %; Platelet Count 204 10^3/uL (130-400); Red Cell Dist. Width 13.0 % (11.5-14.5)
[2024-10-30 02:44] LABS: ALT (SGPT) 43 U/L (0-35); AST (SGOT) 24 U/L (14-36); Albumin 4.0 g/dl (3.5-5.0); Alkaline Phosphatase 102 U/L (38-126); Blood Urea Nitrogen 29 mg/dl (7-17); Calcium 9.0 mg/dl (8.4-10.2); Carbon Dioxide 29 mmol/L (22-30); Chloride 106 mmol/L (98-107); Estimated Creatinine Clearance 23 ml/min; Glucose 93 mg/dl (70-99); Potassium 4.1 mmol/L (3.5-5.1); Sodium 142 mmol/L (135-145); Total Protein 6.7 g/dl (6.3-8.2); eGFR 39.31
[2024-10-30 02:55] LABS: Troponin I < 0.012 ng/ml
[2024-10-30 03:00] VITALS: BP 139/62
--- NOTE | 2024-10-30 03:51 | ED.GENMED ---
History of Present Illness
General
Chief Complaint: Chest Pain
Source: patient and family
Exam Limitations: none
Time Seen by Provider: 10/30/24 03:38
Nursing documentation reviewed up to this point in time: agreed with
History of Present Illness
History of Present Illness:
Note:
CHIEF COMPLAINT(S)
Chest pain
HISTORY OF PRESENT ILLNESS
The patient is an 89-year-old female who presented with chest pain that acutely woke her from sleep at approximately 12:30 AM. She described the pain as 5 out of 10 in severity and feeling as though it was moving toward her throat. The pain resolved
after she self-administered nitroglycerin. technical analyst administered four 81 mg aspirin tablets en route to the hospital. Prior to arrival, the patient stated that her pain had subsided. She reports a history of atrial fibrillation, asthma, chronic
obstructive pulmonary disease, congestive heart failure, hypertension, hyperlipidemia, and gastroesophageal reflux disease. She has a pacemaker in place and takes apixaban (Eliquis) for her atrial fibrillation. She confirms a prior hysterectomy.
The patient notes regular follow-ups with her creative strategist but is unsure of the hospital affiliation. Upon examination, initial labs showed no acute abnormalities, and her electrocardiogram appeared similar to prior tracings, evidencing pacemaker
function. She will remain for repeat lab work in three hours to rule out any cardiac event. If the results remain negative, she will be discharged home.
PAST MEDICAL AND SURGICAL HISTORY
- Atrial fibrillation
- Asthma
- Chronic obstructive pulmonary disease
- Congestive heart failure
- Hypertension
- Hyperlipidemia
- Gastroesophageal reflux disease
- Bilateral hearing impairment
- History of hysterectomy
MEDICATIONS
Apixaban (Eliquis), Nitroglycerin
PHYSICAL EXAM
General: Alert, no acute distress.
PROBLEM LIST
Acute: Chest pain
Chronic:
- Atrial fibrillation
- Asthma
- Chronic obstructive pulmonary disease
- Congestive heart failure
- Hypertension
- Hyperlipidemia
- Gastroesophageal reflux disease
PLAN
- Monitor vital signs and clinical status.
- Repeat blood work in three hours to rule out myocardial infarction.
- If the second set of labs is negative, discharge the patient with follow-up instructions.
- Continue current medications including apixaban and nitroglycerin as needed for chest pain prevention.
DIFFERENTIAL DIAGNOSIS
The Differential Diagnosis includes, in no particular order and is not limited to:
1. Stable angina
2. Myocardial ischemia
3. Gastroesophageal reflux disease
4. Pulmonary embolism
5. Aortic dissection
6. Costochondritis
7. Esophageal spasm
8. Anxiety-induced chest discomfort
9. Chronic obstructive pulmonary disease exacerbation
10. Myocarditis
CARE-UPDATE
10/30/24 - 05:51
Patient denies chest pain at this time. Serial troponins are negative. No signs of ischemia on EKGs. Approved for discharge. Follow-up with cardiology arranged. Return precautions provided.
Disposition:
SUMMARY OF ENCOUNTER
The patient, an 89-year-old female, presented to the emergency department due to chest pain that began acutely at 12:30 AM, waking her from sleep. The pain was described as 5 out of 10 in severity and was alleviating with nitroglycerin administered
by the patient. Upon arrival, the emergency medical records assistant had provided aspirin. Her medical history includes atrial fibrillation, asthma, chronic obstructive pulmonary disease, congestive heart failure, hypertension, hyperlipidemia, and
gastroesophageal reflux disease. She is managed on apixaban. Presentation suggested possible angina, but diagnostic workups including labs and electrocardiogram did not indicate any acute abnormalities or ischemia. She was monitored, and serial
troponin tests were negative. The pain had resolved, and she remained stable during her stay.
DISPOSITION
Discharge home.
ASSESSMENT
Likely stable angina, symptomatic relief with nitroglycerin without evidence of myocardial infarction or ischemia.
PLAN
The patient will continue her current medications including apixaban and nitroglycerin for chest pain prevention as needed. Monitor for recurrence of symptoms and seek immediate medical attention should they reappear.
INDEPENDENT REVIEW OF LABS AND INTERPRETATION OF TESTS
My independent review of serial troponins is negative, indicating no evidence of myocardial infarction. My independent interpretation of ECG shows no acute changes and consistent pacemaker function.
FOLLOW-UP INSTRUCTIONS
The patient is advised to follow up with her creative strategist and primary care provider for ongoing management of her conditions and to schedule these visits promptly upon discharge.
MEDICAL DECISION MAKING
-Complexity of Data Reviewed: Chronic conditions affecting care: atrial fibrillation, asthma, chronic obstructive pulmonary disease, congestive heart failure, hypertension, hyperlipidemia, gastroesophageal reflux disease. The Differential Diagnosis
included: stable angina, myocardial ischemia, gastroesophageal reflux disease, pulmonary embolism, aortic dissection, costochondritis, esophageal spasm, anxiety-induced chest discomfort, chronic obstructive pulmonary disease exacerbation,
myocarditis.
-Data:
Category 1
My independent interpretation of ECG showed no acute changes. Serial troponin levels were negative.
-Risk: Consideration of Admission/Observation: Escalation of care including admission/observation was considered given the complexity and risk of the patients presenting complaint and underlying comorbidities. However, ultimately I feel the patient
is safe for outpatient management with close follow-up. Reasoning: Work-up reassuring, does not reveal any acute life/organ threatening processes, patients symptoms well controlled upon reevaluation, reexamination is reassuring, vitals are stable,
patient agreeable with discharge, reliable for follow-up.
DIAGNOSIS
Chest pain, R07.9; Chronic atrial fibrillation, I48.2.
Past History
Past History
ED Past Medical History: Arrthythmia (Afib - pacemaker), Asthma, CAD, COPD, GERD, HTN, Hypercholesterolemia and Renal failure (stage III)
ED Past Surgical History: Cholecystectomy and Gynecological (hysterectomy)
Social History
Tobacco: Non-smoker
Alcohol: None
Drug: None
Phy Exam
Physical Exam
Physical Exam:
.
Scores
Heart Score for Chest Pain Patients
STEMI patient?: No
History: Slightly or Non-Suspicious
ECG: Normal
Age: >/= 65 years
Risk Factors: 1 or 2 Risk Factors
Troponin: </= Normal Limit
Heart Score for Chest Pain Patients: 3
Heart Score Risk: 2.5% MACE over next 6 weeks
Course
Orders/Labs/Results
Orders:
Orders
10/30/24 01:57
Electrocardiogram (*1) Urgent
Reason for Study: Chest Pain
Cardiac Monitoring- Treatment ONCE
EKG- Treatment ONCE
IV Insert/Care/Rem.- Treatment PRN
O2 Therapy [RESP] Urgent
Titrate/Wean O2 to maintain O2 sat greater than (%): 90
Special Instructions: Maintain sats >/=90%
Pulse Ox/spot Check [RESP] Urgent
Quantity: 1
Special Instructions: ON ROOM AIR
10/30/24 02:06
Complete Blood Count/With Diff Urgent
Comprehensive Metabolic Panel Urgent
NT-proBNP Urgent
Comment: ADDED
Troponin I Urgent
10/30/24 02:09
Add On- LAB Urgent
Tests Added?: pro-bnp
10/30/24 04:56
Troponin I Urgent
Abnormal Lab Results
10/30/24
02:06
RBC 3.56 L 10^6/uL
(4.20-5.40)
Hgb 11.5 L g/dL
(12.0-16.0)
Hct 34.7 L %
(37.0-47.0)
MCH 32.3 H pg
(27.0-31.0)
Absolute Monos (auto) 0.8 H 10^3/uL
(0.1-0.6)
Monocytes % 11.5 H %
(1.7-9.3)
BUN 29 H mg/dl
(7-17)
Creatinine 1.3 H mg/dL
(0.6-1.0)
ALT 43 H U/L
(0-35)
10/30/24 02:06
08/07/25 02:06
Vital Signs
Initial and Last Documented VS:
Initial Vital Signs
Temp Pulse Resp BP Pulse Ox
98.1 F 70 20 135/74 96
10/30/24 02:00 10/30/24 02:00 10/30/24 02:00 10/30/24 02:00 10/30/24 02:00
Last Documented Vital Signs
Temp Pulse Resp BP Pulse Ox
98.1 F 70 13 139/62 94
10/30/24 02:00 10/30/24 03:00 10/30/24 03:00 10/30/24 03:00 10/30/24 03:51
*Pulse Oximetry
SaO2: 94
Oxygen Mode of Delivery: Room air
Patient hypoxic: no
*Critical Care Note
Total Time (30-74mins, 75-104mins- exclusive of procedures): Not Applicable
ED Attending Note
-
Portions of this chart may have been created with voice recognition software.� Occasional wrong word or��sound alike� substitutions may have occurred due to the inherent limitations of voice recognition software.
Discharge Plan
Departure
Patient Disposition: Home (Routine Discharge)
Date of Disposition: 10/30/24
Time of Disposition: 05:48
Patient with high blood pressure during this ER visit?: Yes
Condition: Good
Discharge Problem:
Chest pain
Instructions: Chest Pain NON-[facility] Senior Biostatistician Follow Up, BLOOD PRESSURE
Prescriptions:
No Action
paroxetine HCl 20 MG tablet
20 mg PO QPM
rosuvastatin 20 mg Tablet
20 mg PO QPM
cholecalciferol (vitamin D3) 2,000 UNIT tablet
2,000 unit PO DAILY
fluticasone propion-salmeterol 250-50 mcg/dose Blister With Device
1 inh INHALATION R BID
Patient Comments:
daughter says that patient has stopped using this because she is currently using nebs TID
sennosides [senna] 8.6 mg Tablet
8.6 mg PO HS
metoprolol succinate 100 mg Tablet Extended Release 24 Hr
100 mg PO BID
diltiazem HCl 240 mg Capsule,Extended Release 24 Hr
240 mg PO DAILY
ferrous sulfate 325 mg (65 mg iron) Tablet
325 mg PO DAILY
furosemide 20 mg Tablet
20 mg PO DAILY
Eliquis 2.5 mg Tablet
2.5 mg PO BID
acetaminophen 500 mg Tablet
1,000 mg PO DAILYPRN PRN (Reason: mild pain)
pantoprazole 40 mg Tablet,Delayed Release (Dr/Ec)
40 mg PO DAILY
Preparation H 0.25-14-74.9 % Ointment
1 applic [place] HSPRN PRN (Reason: hemmorhoids)
albuterol sulfate 2.5 mg /3 mL (0.083 %) Solution For Nebulization
2.5 mg INHALATION R QIDPRN PRN (Reason: sob)
Referrals:
Deepak Jeffers MD [Non-Admitting Privileges] - Call in 1-3 days for appt
Harvey Napoles DO [Family Provider, Family Practice] - Call in 1-3 days for appt
Interventions
Interventions:
*Risk Screen - Suicide Last Done: 10/30/24 02:00
*General Assessment Last Done: 10/30/24 02:00
*Neglect/Abuse Screening Last Done: 10/30/24 02:00
*ED- Fall Risk Assessment Last Done: 10/30/24 02:00
*ED COVID-19 Vaccine History Last Done: 10/30/24 02:00
ED- Cardiac Assessment Last Done: 10/30/24 02:00
Discharge Date and Time
Print Language: TANZANIAN
[2024-10-30 04:00] VITALS: BP 120/55
[2024-10-30 05:00] VITALS: BP 122/54
[2024-10-30 05:40] LABS: Troponin I < 0.012 ng/ml
[2024-10-30 06:00] VITALS: BP 113/53
== END 2024-10-30 06:38 | disposition home or self-care (01) ==
LOC: EMR 01:55
PROVIDERS: EMERGENCY PHYSICIAN Emergency Medicine; FAMILY PHYSICIAN Family Medicine
DX: R07.89 Other chest pain (principal); I11.0 Hypertensive heart disease with heart failure; I50.9 Heart failure, unspecified; I48.20 Chronic atrial fibrillation, unspecified; I13.0 Hypertensive heart and chronic kidney disease with heart failure and stage 1 through stage 4 chronic kidney disease, or unspecified chronic kidney disease; N18.30 Chronic kidney disease, stage 3 unspecified; E78.00 Pure hypercholesterolemia, unspecified; J44.89 Other specified chronic obstructive pulmonary disease; I25.10 Atherosclerotic heart disease of native coronary artery without angina pectoris; K21.9 Gastro-esophageal reflux disease without esophagitis; Z95.0 Presence of cardiac pacemaker; Z79.01 Long term (current) use of anticoagulants; Z90.49 Acquired absence of other specified parts of digestive tract; Z88.2 Allergy status to sulfonamides
CPT/HCPCS: 99285; 94760; 80053; 83880; 84484; 85025; 93005